=== PATIENT | male | born 1985 | race Caucasian/White ===

== ENCOUNTER 2018-04-20 07:49 | Inpatient (IN) | payer SELFPAY ==
[2018-04-20] MEDS ORDERED: ONDANSETRON HCL INJ/PF 4 MG/2 ML SDV IV ONE (08:29)
[2018-04-20] MEDS ORDERED: HYDROMORPHONE HCL INJ/PF 2 MG/ML AMPULE IV ONE ×2 (08:29→21:30)
--- NOTE | 2018-04-20 08:32 | ER Document Report ---
ED General - General Chief Complaint: Upper Abdominal Pain Stated Complaint: ABDOMINAL PAIN Time Seen by Provider: 04/20/18 08:16 TRAVEL OUTSIDE OF THE [place] IN LAST 30 DAYS: No - HPI Notes: Patient is a 32-year-old male who presents to the ED complaining of epigastric abdominal pain that will radiate around his abdomen and is associated with some mid back soreness times 1 day. Patient states that he has had pancreatitis twice in the past and that this feels the same. Patient states that he has occasional nausea without vomiting. He has had some loose stool over the last couple days. Denies drug allergies. He is otherwise able to eat and drink, but does have a decreased p.o. intake. No other recent illness. He is urinating normally. Denies any headache, fever, URI, sore throat, chest pain, palpitations, syncope, cough, shortness of breath, wheeze, dyspnea, vomiting, urinary retention, dysuria, hematuria, loss of control of bowel or bladder, numbness/tingling, saddle anesthesia, muscle paralysis/weakness, or rash. Surgical hx of cholecystectomy. - Related Data Allergies/Adverse Reactions: No Known Allergies Allergy (Verified 04/20/18 07:53) Past Medical History - Social History Smoking Status: Unknown if Ever Smoked Family History: Reviewed & Not Pertinent Review of Systems - Review of Systems -: Yes All other systems reviewed and negative Physical Exam - Vital signs Vitals: Temp Pulse Resp BP Pulse Ox 98.0 F 108 H 18 137/94 H 99 04/20/18 07:56 04/20/18 07:56 04/20/18 07:56 04/20/18 07:56 04/20/18 07:56 - Notes Notes: PHYSICAL EXAMINATION: GENERAL: Well-appearing, well-nourished and in no acute resp distress. A&Ox4. Answers questions appropriately. Appears to be in discomfort and holding abd. HEAD: Atraumatic, normocephalic. EYES: Pupils equal round and reactive to light, extraocular movements intact, sclera anicteric, conjunctiva are normal. ENT: EAC clear b/l. TM's intact b/l without erythema, fluid, or perforation. Nares patent and without discharge. oropharynx clear without exudates. No tonsilar hypertrophy or erythema. Moist mucous membranes. No sinus tenderness. NECK: Normal range of motion, supple without lymphadenopathy LUNGS: Breath sounds clear to auscultation bilaterally and equal. No wheezes rales or rhonchi. HEART: Regular rate and rhythm without murmurs, rubs, gallops. ABDOMEN: Soft, nondistended abdomen. No guarding, no rebound. No masses appreciated. Normal bowel sounds present. No CVA tenderness bilaterally. + tenderness to the epigastrum. Musculoskeletal: FROM to passive/active. Strength 5+/5. Extremities: No cyanosis, clubbing, or edema b/l. Peripheral pulses 2+. Capillary refill less than 3 seconds. NEUROLOGICAL: Normal speech, normal gait. PSYCH: Normal mood, normal affect. SKIN: Warm, Dry, normal turgor, no rashes or lesions noted. Course - Re-evaluation Re-evalutation: 04/20/18 10:55 Patient is an afebrile, well-hydrated, 32-year-old male who presents to the ED with acute alcoholic pancreatitis. Vitals are acceptable. Labs and CT imaging consistent with acute pancreatitis. Patient reports drinking over the last couple days. I did speak with our hospitalist, Dr. Saha, who accepted patient. Patient is in agreement with admission and plan. - Vital Signs Vital signs: Temp Pulse Resp BP Pulse Ox 98.0 F 108 H 18 137/94 H 99 04/20/18 07:56 04/20/18 07:56 04/20/18 07:56 04/20/18 07:56 04/20/18 07:56 - Laboratory Result Diagrams: 04/20/18 08:35 04/20/18 08:35 Laboratory results interpreted by me: 04/20/18 04/20/18 08:35 08:35 WBC 11.2 H RBC 5.58 H Hgb 17.9 H RDW 14.6 H Seg Neutrophils % 80.5 H Absolute Neutrophils 9.0 H Anion Gap 20 H Glucose 143 H Total Bilirubin 1.4 H Direct Bilirubin 0.5 H AST 77 H ALT 76 H Lipase 1623.5 H Discharge - Discharge Clinical Impression: Acute pancreatitis Qualifiers: Pancreatitis type: alcohol induced Acute pancreatitis complication: uninfected necrosis Qualified Code(s): K85.21 - Alcohol induced acute pancreatitis with uninfected necrosis Condition: Stable Disposition: ADMITTED INPATIENT Admitting Provider: Hospitalist - Dr. Saha Unit Admitted: Medical Floor
--- NOTE | 2018-04-20 08:44 | RADIOLOGY REPORT (SQ) ---
EXAM DESCRIPTION: CHEST SINGLE VIEW COMPLETED DATE/TIME: 04/20/2018 8:34 am REASON FOR STUDY: epigastric pain COMPARISON: None. EXAM PARAMETERS: NUMBER OF VIEWS: One view. TECHNIQUE: Single frontal radiographic view of the chest acquired. RADIATION DOSE: NA LIMITATIONS: None. FINDINGS: LUNGS AND PLEURA: No opacities, masses or pneumothorax. No pleural effusion. MEDIASTINUM AND HILAR STRUCTURES: No masses. Contour normal. HEART AND VASCULAR STRUCTURES: Heart normal in size. Normal vasculature. BONES: No acute findings. HARDWARE: None in the chest. OTHER: No other significant finding. IMPRESSION: 1. NO ACUTE RADIOGRAPHIC FINDING IN THE CHEST. TECHNICAL DOCUMENTATION: JOB ID: [id number] [employer]- All Rights Reserved Reading location - IP/workstation name: [email or web address]
[2018-04-20 08:50] LABS: ABSOLUTE LYMPHOCYTES (AUTO) 1.6 10^3/uL (0.5-4.7); ABSOLUTE MONOCYTES (AUTO) 0.5 10^3/uL (0.1-1.4); BASOPHILS % (AUTO) 0.3 % (0-2); EOSINOPHILS % (AUTO) 0.2 % (0-6); HEMATOCRIT 50.2 % (37.9-51.0); HEMOGLOBIN 17.9 g/dL (13.5-17.0); LYMPHOCYTES % (AUTO) 14.2 % (13-45); MEAN CORPUSCULAR HEMOGLOBIN 32.2 pg (27.0-33.4); MEAN CORPUSCULAR HGB CONC 35.8 g/dL (32.0-36.0); MEAN CORPUSCULAR VOLUME 90 fl (80-97); MONOCYTES % (AUTO) 4.8 % (3-13); PLATELET COUNT 426 10^3/uL (150-450); RED BLOOD COUNT 5.58 10^6/uL (4.35-5.55); RED CELL DISTRIBUTION WIDTH 14.6 % (11.5-14.0); SEGMENTED NEUTROPHILS % (AUTO) 80.5 % (42-78); TOTAL CELLS COUNTED % (AUTO) 100 %; WHITE BLOOD COUNT 11.2 10^3/uL (4.0-10.5)
[2018-04-20] MEDS: NORMAL SALINE 1000 ML 1,000 ML IV PRN ×2 (08:52→09:55)
[2018-04-20 10:21] LABS: ALANINE AMINOTRANSFERASE 76 U/L (21-72); ALBUMIN 4.9 g/dL (3.5-5.0); ALKALINE PHOSPHATASE 95 U/L (38-126); ASPARTATE AMINO TRANSFERASE 77 U/L (17-59); BILIRUBIN,DIRECT 0.5 mg/dL (0.0-0.4); BILIRUBIN,TOTAL 1.4 mg/dL (0.2-1.3); BLOOD UREA NITROGEN 13 mg/dL (7-20); CALCIUM 9.5 mg/dL (8.4-10.2); CARBON DIOXIDE 24 mmol/L (22-30); CHLORIDE 101 mmol/L (98-107); GLUCOSE 143 mg/dL (75-110); LIPASE 1623.5 U/L (23-300); POTASSIUM 4.3 mmol/L (3.6-5.0); TOTAL PROTEIN 7.9 g/dL (6.3-8.2)
[2018-04-20 10:28] LABS: SODIUM 144.5 mmol/L (137-145)
[2018-04-20 10:30] LABS: ANION GAP 20 (5-19)
--- NOTE | 2018-04-20 10:51 | RADIOLOGY REPORT (SQ) ---
EXAM DESCRIPTION: CT ABD/PELVIS WITH IV ONLY COMPLETED DATE/TIME: 04/20/2018 10:27 am REASON FOR STUDY: epigastric abd pain COMPARISON: None. TECHNIQUE: CT scan of the abdomen and pelvis performed using helical scanning technique with dynamic intravenous contrast injection. No oral contrast. Images reviewed with lung, soft tissue, and bone windows. Reconstructed coronal and sagittal MPR images reviewed. Delayed images for evaluation of the urinary system also acquired. All images stored on PACS. All CT scanners at this facility use dose modulation, iterative reconstruction, and/or weight based d osing when appropriate to reduce radiation dose to as low as reasonably achievable (ALARA). [facility]: Dose Right [facility]: CareDose [facility]: Dose Right [facility]: Teradose 4D [facility]: Yunno CONTRAST TYPE AND DOSE: contrast/concentration: Isovue 350.00 mg/ml; Total Contrast Delivered: 100.0 ml; Total Saline Delivered: 70.0 ml RENAL FUNCTION: None required. The patient is less than 50 years old. RADIATION DOSE: CT Rad equipment meets quality standard of care and radiation dose reduction techniq ues were employed. CTDIvol: 12.2 - 16.2 mGy. DLP: 1783 mGy-cm.. LIMITATIONS: None. FINDINGS: There is extensive retroperitoneal inflammation surrounding the pancreatic head neck and p roximal body, 2nd portion of duodenum from acute pancreatitis. This extends into the right anterior pararenal space. No free fluid in the abdomen or pelvis. No pseudocyst. No pancreatic ductal dilat ation This report was called Reji Quinteros in the emergency room 1040 hours 04/20/2018. LOWER CHEST: No significant findings. No nodules or infiltrates. LIVER: Decreased density from diffuse fatty infiltration. SPLEEN: Normal size. No focal lesions. PANCREAS: As above GALLBLADDER: Surgically absent ADRENAL GLANDS: No significant masses or asymmetry. RIGHT KIDNEY AND URETER: No solid masses. Subcentimeter cysts in the right mid and upper pole kidney . No significant calcifications. No hydronephrosis or hydroureter. LEFT KIDNEY AND URETER: No solid masses. 6.5 cm left midpole cyst, 1 cm left midpole cyst. 2 mm lef t lower pole intrarenal nonobstructive stone coronal image 41. No hydronephrosis or hydroureter. AORTA AND VESSELS: No aneurysm. No dissection. Renal arteries, SMA, celiac without stenosis. Normal enhancement of the splenic vein, superior mesenteric vein and main portal vein. RETROPERITONEUM: Peripancreatic inflammatory change. No adenopathy BOWEL AND PERITONEAL CAVITY: No masses or inflammatory changes. No free fluid or peritoneal masses. APPENDIX: Normal. PELVIS: No mass. No free fluid. Normal bladder. ABDOMINAL WALL: No masses. No hernias. BONES: No significant or acute findings. OTHER: No other significant finding. IMPRESSION: Acute pancreatitis Fatty liver Post cholecystectomy TECHNICAL DOCUMENTATION: JOB ID: [id number] Quality ID # [id number]: Final reports with documentation of one or more dose reduction techniques (e.g., Au tomated exposure control, adjustment of the mA and/or kV according to patient size, use of iterative reconstruction technique) 2010 [employer]- All Rights Reserved Reading location - IP/workstation name: [email or web address]
[2018-04-20] MEDS ORDERED: MORPHINE SULFATE 10 MG/ML INJ IV ONE (10:52)
[2018-04-20] MEDS ORDERED: NORMAL SALINE 1000 ML 1,000 ML IV PRN (10:54)
[2018-04-20] MEDS ORDERED: ONDANSETRON HCL INJ/PF 4 MG/2 ML SDV IV PRN (11:25)
[2018-04-20] MEDS ORDERED: MORPHINE SULFATE 10 MG/ML INJ IV PRN (11:31)
[2018-04-20] MEDS: FAMOTIDINE INJ/PF 20 MG/2 ML SDV IV SCH ×2 (12:16→22:59)
[2018-04-20] MEDS: HYDROMORPHONE HCL INJ/PF 2 MG/ML AMPULE IV PRN ×2 (14:00→19:50)
--- NOTE | 2018-04-20 14:39 | PDOC H&P ---
History of Present Illness Admission Date/PCP: 04/20/18 11:48 Patient complains of: Abdominal pain History of Present Illness: ADDY MCCARTNEY is a 32 year old male with history of gallstone/alcoholic pancreatitis, psoriasis who presents to the emergency room due to acute onset of severe progressive sharp epigastric pain started last night after drinking with his friends and associated with nausea and diarrhea with no vomiting. Patient tells me that he does not drink very often. He is from out of town and visiting friends. His last drink before that was a week ago. He has highly elevated lipase and CT scan is positive for acute pancreatitis. Past Medical History Past Medical History: Pancreatitis Psoriasis Psychiatric Medical History: Reports: Depression Past Surgical History Past Surgical History: Cholecystectomy Social History Smoking Status: Unknown if Ever Smoked Frequency of Alcohol Use: Occasional Hx Recreational Drug Use: No Drugs: None Hx Prescription Drug Abuse: No Family History Family History: Reviewed & Not Pertinent Parental Family History Reviewed: Yes Children Family History Reviewed: Yes Sibling(s) Family History Reviewed.: Yes Medication/Allergy Home Medications: No Home Medications 04/20/18 Allergies/Adverse Reactions: No Known Allergies Allergy (Verified 04/20/18 07:53) Review of Systems All systems: reviewed and no additional remarkable complaints except as stated Physical Exam Vital Signs: Temp Pulse Resp BP Pulse Ox 98.0 F 108 H 18 137/94 H 99 04/20/18 07:56 04/20/18 07:56 04/20/18 07:56 04/20/18 07:56 04/20/18 07:56 Intake & Output 04/19/18 04/20/18 04/21/18 06:59 06:59 06:59 Intake Total 168 Balance 168 General appearance: PRESENT: cooperative, mild distress Head exam: PRESENT: atraumatic, normocephalic Eye exam: PRESENT: EOMI. ABSENT: conjunctival injection, nystagmus Ear exam: ABSENT: bleeding, drainage Mouth exam: PRESENT: neck supple, tongue midline Throat exam: ABSENT: post pharyngeal erythema, tonsillar erythema, tonsillar exudate Neck exam: PRESENT: full ROM. ABSENT: JVD, meningismus, tenderness Respiratory exam: PRESENT: clear to auscultation puja, symmetrical, unlabored. ABSENT: accessory muscle use Cardiovascular exam: PRESENT: RRR. ABSENT: diastolic murmur, systolic murmur Pulses: PRESENT: normal radial pulses GI/Abdominal exam: PRESENT: normal bowel sounds, soft, tenderness. ABSENT: ascites Rectal exam: PRESENT: deferred Extremities exam: ABSENT: joint swelling, pedal edema Musculoskeletal exam: PRESENT: ambulatory, normal inspection. ABSENT: deformity Neurological exam: PRESENT: alert, altered, awake, oriented to person, oriented to place, oriented to time, oriented to situation Psychiatric exam: PRESENT: anxious. ABSENT: homicidal ideation, suicidal ideation Skin exam: PRESENT: erythema - Psoriasis rash Results Impressions: Chest X-Ray 04/20/18 08:15 IMPRESSION: 1. NO ACUTE RADIOGRAPHIC FINDING IN THE CHEST. Abdomen/Pelvis CT 04/20/18 09:18 IMPRESSION: Acute pancreatitis Fatty liver Post cholecystectomy Assessment & Plan - Diagnosis (1) Acute pancreatitis Qualifiers: Pancreatitis type: alcohol induced Acute pancreatitis complication: uninfected necrosis Qualified Code(s): K85.21 - Alcohol induced acute pancreatitis with uninfected necrosis Is this a current diagnosis for this admission?: Yes Plan: Admit to the medical floor Start aggressive IV fluid hydration IV Dilaudid for pain management IV Zofran as needed for nausea and vomiting Okay to start clear liquid diet (2) Psoriasis Is this a current diagnosis for this admission?: Yes Plan: Follow-up outpatient (3) Alcohol use Is this a current diagnosis for this admission?: Yes Plan: Advised to stop drinking alcohol
[2018-04-20] MEDS: LORAZEPAM INJ 2 MG/1 ML VIAL IV PRN ×2 (16:00→20:46)
[2018-04-20] MEDS: RINGERS SOLUTION,LACTATED 1,000 ML IV PRN (19:51)
[2018-04-21] MEDS: HYDROMORPHONE HCL INJ/PF 2 MG/ML AMPULE IV PRN ×6 (04:02→20:47)
[2018-04-21 06:36] LABS: ABSOLUTE LYMPHOCYTES (AUTO) 1.1 10^3/uL (0.5-4.7); ABSOLUTE MONOCYTES (AUTO) 0.8 10^3/uL (0.1-1.4); ABSOLUTE NEUT (AUTO) 17.5 10^3/uL (1.7-8.2); BASOPHILS % (AUTO) 0.2 % (0-2); LYMPHOCYTES % (AUTO) 5.6 % (13-45); MEAN CORPUSCULAR HGB CONC 35.5 g/dL (32.0-36.0); MEAN CORPUSCULAR VOLUME 90 fl (80-97); PLATELET COUNT 326 10^3/uL (150-450); RED BLOOD COUNT 5.33 10^6/uL (4.35-5.55); RED CELL DISTRIBUTION WIDTH 13.9 % (11.5-14.0); SEGMENTED NEUTROPHILS % (AUTO) 90.2 % (42-78); TOTAL CELLS COUNTED % (AUTO) 100 %; WHITE BLOOD COUNT 19.4 10^3/uL (4.0-10.5)
[2018-04-21 07:09] LABS: ALANINE AMINOTRANSFERASE 215 U/L (21-72); ALBUMIN 3.8 g/dL (3.5-5.0); ALKALINE PHOSPHATASE 100 U/L (38-126); ANION GAP 13 (5-19); ASPARTATE AMINO TRANSFERASE 611 U/L (17-59); BILIRUBIN,DIRECT 5.7 mg/dL (0.0-0.4); BLOOD UREA NITROGEN 9 mg/dL (7-20); CALCIUM 8.5 mg/dL (8.4-10.2); CARBON DIOXIDE 27 mmol/L (22-30); CHLORIDE 99 mmol/L (98-107); GLUCOSE 133 mg/dL (75-110); POTASSIUM 3.7 mmol/L (3.6-5.0); TOTAL PROTEIN 6.4 g/dL (6.3-8.2)
[2018-04-21 07:19] LABS: BILIRUBIN,TOTAL 7.5 mg/dL (0.2-1.3)
[2018-04-21 07:40] LABS: LIPASE 4514.2 U/L (23-300)
[2018-04-21] MEDS ORDERED: PIPERACILLIN/TAZOBACTAM 3.375 GM VIAL IV SCH (09:00)
[2018-04-21] MEDS: RINGERS SOLUTION,LACTATED 1,000 ML IV PRN ×3 (09:14→22:50)
[2018-04-21] MEDS: MAGNESIUM SULFATE/D5W 1 GM/100 ML RTUPB IV SCH ×3 (09:15→14:31)
[2018-04-21] MEDS: PIPERACILLIN SODIUM/TAZOBACTAM 3.375 GM in NORMAL SALINE 100 ML IV SCH ×3 (10:19→22:49)
[2018-04-21] MEDS: FAMOTIDINE INJ/PF 20 MG/2 ML SDV IV SCH ×2 (11:29→22:49)
[2018-04-21] MEDS: ENOXAPARIN SODIUM INJ 40 MG/0.4 ML DISP.SYRIN SUBCUT SCH (11:30)
[2018-04-21] MEDS ORDERED: LABETALOL HCL INJ 20 MG/4 ML DISP.SYRIN IV ONE (12:12)
--- NOTE | 2018-04-21 12:17 | PDOC PROGRESS REPORT ---
Subjective Progress Note for:: 04/21/18 Subjective:: Patient was admitted yesterday and received aggressive IV fluid hydration, IV Dilaudid for pain and IV Zofran for nausea and vomiting. He was started on clear liquid diet. He tells me that he vomited yesterday once. Although he is still tolerating clear liquids. His pain is tolerable with IV Dilaudid. Patient's labs are a lot worse today with his his bilirubin increased from 1.47.5 and white count increased from 11-19,000 his lipase is extremely elevated so as his liver enzymes today. He is also hypertensive and tachycardic. He does not have any respiratory distress. Reason For Visit: ACUTE PANCREATITIS Physical Exam Vital Signs: Temp Pulse Resp BP Pulse Ox 97.9 F 113 H 16 161/101 H 95 04/21/18 07:13 04/21/18 09:47 04/21/18 07:13 04/21/18 07:13 04/21/18 07:13 Intake & Output 04/20/18 04/21/18 04/22/18 06:59 06:59 06:59 Intake Total 998 1200 Balance 998 1200 Weight 218 lb 0.595 oz General appearance: PRESENT: cooperative. ABSENT: no acute distress Head exam: PRESENT: atraumatic, normocephalic Eye exam: PRESENT: EOMI, scleral icterus. ABSENT: nystagmus Ear exam: ABSENT: bleeding, drainage Neck exam: ABSENT: meningismus, tenderness Respiratory exam: PRESENT: clear to auscultation puja, unlabored. ABSENT: accessory muscle use, wheezes Cardiovascular exam: PRESENT: tachycardia. ABSENT: diastolic murmur, systolic murmur Pulses: PRESENT: normal radial pulses GI/Abdominal exam: PRESENT: normal bowel sounds, soft, tenderness - Severe epigastric tenderness. ABSENT: ascites Rectal exam: PRESENT: deferred Extremities exam: ABSENT: pedal edema Musculoskeletal exam: PRESENT: ambulatory. ABSENT: deformity Neurological exam: PRESENT: alert, altered, awake, oriented to person, oriented to place, oriented to time, oriented to situation Psychiatric exam: PRESENT: anxious. ABSENT: homicidal ideation, suicidal ideation Results Laboratory Results: 04/21/18 04:57 04/21/18 04:57 04/21/18 04/21/18 04:57 04:57 WBC 19.4 H RBC 5.33 Hgb 17.0 Hct 48.0 MCV 90 MCH 32.0 MCHC 35.5 RDW 13.9 Plt Count 326 Seg Neutrophils % 90.2 H Lymphocytes % 5.6 L Monocytes % 4.0 Eosinophils % 0.0 Basophils % 0.2 Absolute Neutrophils 17.5 H Absolute Lymphocytes 1.1 Absolute Monocytes 0.8 Absolute Eosinophils 0.0 Absolute Basophils 0.0 Sodium 139.0 Potassium 3.7 Chloride 99 Carbon Dioxide 27 Anion Gap 13 BUN 9 Creatinine 0.67 Est GFR ( Amer) > 60 Est GFR (Non-Af Amer) > 60 Glucose 133 H Calcium 8.5 Magnesium 1.3 L Total Bilirubin 7.5 H D AST 611 H ALT 215 H Alkaline Phosphatase 100 Total Protein 6.4 Albumin 3.8 Lipase 4514.2 H Impressions: Chest X-Ray 04/20/18 08:15 IMPRESSION: 1. NO ACUTE RADIOGRAPHIC FINDING IN THE CHEST. Abdomen/Pelvis CT 04/20/18 09:18 IMPRESSION: Acute pancreatitis Fatty liver Post cholecystectomy Assessment & Plan - Diagnosis (1) Acute pancreatitis Qualifiers: Pancreatitis type: alcohol induced Acute pancreatitis complication: uninfected necrosis Qualified Code(s): K85.21 - Alcohol induced acute pancreatitis with uninfected necrosis Is this a current diagnosis for this admission?: Yes Plan: Continue aggressive IV fluid hydration Continue IV Dilaudid for pain management Continue IV Zofran as needed for nausea and vomiting Patient is not improving, he is actually worsening His lipase levels significantly increased so as his total bilirubin levels and his liver enzymes Also, his white cell count significant increased Is also hypertensive and tachycardic I asked him again today about his alcohol consumption, he is still insisting that he does not drink much at all We will repeat CT scan of the abdomen with IV contrast and check right upper quadrant ultrasound We will consult general surgery We will continue to monitor his labs very closely as well as his hemodynamic status Continue to monitor urine output very closely (2) Psoriasis Is this a current diagnosis for this admission?: Yes Plan: Should follow-up outpatient (3) Alcohol use Is this a current diagnosis for this admission?: Yes Plan: Again, advised to stop drinking alcohol (4) Hyperbilirubinemia Is this a current diagnosis for this admission?: Yes Plan: As above (5) Transaminitis Is this a current diagnosis for this admission?: Yes Plan: As above (6) Leukocytosis Is this a current diagnosis for this admission?: Yes Plan: Start Zosyn empirically and check blood cultures (7) Hypomagnesemia Is this a current diagnosis for this admission?: Yes Plan: Replace with IV magnesium and monitor levels (8) Tachycardia Is this a current diagnosis for this admission?: Yes Plan: Check EKG and admit to telemetry
--- NOTE | 2018-04-21 13:23 | RADIOLOGY REPORT (SQ) ---
EXAM DESCRIPTION: U/S ABDOMEN LIMITED W/O DOP COMPLETED DATE/TIME: 04/21/2018 1:12 pm REASON FOR STUDY: pancreatitis COMPARISON: Abdominal CT scan dated 04/20/2018 TECHNIQUE: Dynamic and static grayscale images acquired of the abdomen and recorded on PACS. Additio nal selected color Doppler and spectral images recorded. LIMITATIONS: Study is limited due to overlying bowel gas. FINDINGS: PANCREAS: No masses. Visualized pancreatic duct normal caliber. LIVER: No masses. Echotexture normal. The liver measures enlarged. LIVER VASCULATURE: Normal directional flow of the main portal vein. GALLBLADDER: Status post cholecystectomy ULTRASOUND-DETECTED CARRILLO'S SIGN: Negative. INTRAHEPATIC DUCTS AND COMMON DUCT: CBD and intrahepatic ducts normal caliber. No filling defects. INFERIOR VENA CAVA: Normal flow. AORTA: No aneurysm. RIGHT KIDNEY: 14.3 cm in length. Normal echogenicity. No solid or suspicious masses. No hydronephros is. No calcifications. PERITONEAL AND RIGHT PLEURAL SPACE: Small amount of free fluid is identified just superior to the rig ht kidney presumably related to the patient's pancreatitis which was identified on the previous study OTHER: No other significant findings. IMPRESSION: No definite pancreatic masses are identified. Status post cholecystectomy. Small amoun t of free fluid is identified just superior to the right kidney presumably related to the patient's p ancreatitis which was identified on the previous study. Other findings as noted above TECHNICAL DOCUMENTATION: JOB ID: [id number] [employer]- All Rights Reserved Reading location - IP/workstation name: [email or web address]
--- NOTE | 2018-04-21 15:23 | RADIOLOGY REPORT (SQ) ---
EXAM DESCRIPTION: CT ABD/PELVIS WITH IV ONLY COMPLETED DATE/TIME: 04/21/2018 1:21 pm REASON FOR STUDY: pancreatitis COMPARISON: Previous day. TECHNIQUE: CT scan of the abdomen and pelvis performed using helical scanning technique with dynamic intravenous contrast injection. No oral contrast. Images reviewed with lung, soft tissue, and bone windows. Reconstructed coronal and sagittal MPR images reviewed. Delayed images for evaluation of the urinary system also acquired. All images stored on PACS. All CT scanners at this facility use dose modulation, iterative reconstruction, and/or weight based d osing when appropriate to reduce radiation dose to as low as reasonably achievable (ALARA). [facility]: Dose Right [facility]: CareDose [facility]: Dose Right [facility]: Teradose 4D [facility]: LUXA CONTRAST TYPE AND DOSE: contrast/concentration: Isovue 350.00 mg/ml; Total Contrast Delivered: 100.0 ml; Total Saline Delivered: 72.0 ml RENAL FUNCTION: GFR > 60. RADIATION DOSE: CT Rad equipment meets quality standard of care and radiation dose reduction techniq ues were employed. CTDIvol: 10.7 - 12.5 mGy. DLP: 1428 mGy-cm.. LIMITATIONS: None. FINDINGS: No significant change in inflammation associated with acute pancreatitis. No evidence of necrosis. No pseudoaneurysm or pseudocyst. Small amount of ascites in the left upper quadrant and pelvis. Appearance is otherwise unchanged IMPRESSION: Acute pancreatitis. Small amount of ascites. Otherwise no change. TECHNICAL DOCUMENTATION: JOB ID: [id number] Quality ID # [id number]: Final reports with documentation of one or more dose reduction techniques (e.g., Au tomated exposure control, adjustment of the mA and/or kV according to patient size, use of iterative reconstruction technique) 2010 [email or web address]- All Rights Reserved Reading location - IP/workstation name: [email or web address]
--- NOTE | 2018-04-21 16:04 | PDOC CONSULTATION ---
History of Present Illness Admission Date/PCP: 04/20/18 11:48 Patient complains of: Abdominal pain History of Present Illness: ADDY MCCARTNEY is a 32 year old male with a history of heavy alcohol use who developed acute onset of diffuse abdominal pain several days ago after drinking alcohol. The pain in the epigastric region has subsided but he has developed diffuse abdominal pain along with abdominal distention. He also has had an episode of nausea and vomiting. He has had 2 prior episodes of pancreatitis which were attributed to possible gallstones and he had a laparoscopic cholecystectomy couple of years ago. However he has had an episode of pancreatitis after his cholecystectomy last year. Uncertain whether he ever had an ERCP. His only other past medical history is psoriasis for which he has been on different medications in the past but no recent intake of methotrexate nor steroids. Patient denies any history of alcohol withdrawals. He states that he does not drink every day. He denies any drug abuse. Past Medical History Cardiac Medical History: Reports: None Pulmonary Medical History: Reports: None Endocrine Medical History: Reports: None GI Medical History: Reports: Other - Pancreatitis in the past Skin Medical History: Reports: Psoriasis Psychiatric Medical History: Reports: Depression Social History Smoking Status: Never Smoker Frequency of Alcohol Use: Heavy Hx Recreational Drug Use: No Drugs: None Hx Prescription Drug Abuse: No Family History Family History: Reviewed & Not Pertinent Parental Family History Reviewed: No Children Family History Reviewed: No Sibling(s) Family History Reviewed.: No Medication/Allergy Home Medications: No Home Medications 04/20/18 Allergies/Adverse Reactions: No Known Allergies Allergy (Verified 04/20/18 07:53) Physical Exam Vital Signs: Temp Pulse Resp BP Pulse Ox 98.2 F 69 16 156/107 H 96 04/21/18 11:13 04/21/18 14:00 04/21/18 11:13 04/21/18 11:13 04/21/18 11:13 Intake & Output 04/20/18 04/21/18 04/22/18 06:59 06:59 06:59 Intake Total 998 1300 Output Total 300 Balance 998 1000 Weight 98.9 kg General appearance: PRESENT: no acute distress, cooperative Neck exam: PRESENT: other - No swelling and no masses. Supple. Respiratory exam: PRESENT: clear to auscultation puja Cardiovascular exam: PRESENT: RRR GI/Abdominal exam: PRESENT: other - Moderately distended but it is soft with diffuse abdominal tenderness without peritoneal signs. Extremities exam: PRESENT: other - No swelling. Neurological exam: PRESENT: alert, awake Psychiatric exam: PRESENT: appropriate affect Skin exam: PRESENT: warm Results Laboratory Results: 04/21/18 04:57 04/21/18 04:57 04/21/18 04/21/18 04:57 04:57 WBC 19.4 H RBC 5.33 Hgb 17.0 Hct 48.0 MCV 90 MCH 32.0 MCHC 35.5 RDW 13.9 Plt Count 326 Seg Neutrophils % 90.2 H Lymphocytes % 5.6 L Monocytes % 4.0 Eosinophils % 0.0 Basophils % 0.2 Absolute Neutrophils 17.5 H Absolute Lymphocytes 1.1 Absolute Monocytes 0.8 Absolute Eosinophils 0.0 Absolute Basophils 0.0 Sodium 139.0 Potassium 3.7 Chloride 99 Carbon Dioxide 27 Anion Gap 13 BUN 9 Creatinine 0.67 Est GFR ( Amer) > 60 Est GFR (Non-Af Amer) > 60 Glucose 133 H Calcium 8.5 Magnesium 1.3 L Total Bilirubin 7.5 H D AST 611 H ALT 215 H Alkaline Phosphatase 100 Total Protein 6.4 Albumin 3.8 Lipase 4514.2 H Impressions: Chest X-Ray 04/20/18 08:15 IMPRESSION: 1. NO ACUTE RADIOGRAPHIC FINDING IN THE CHEST. Abdomen Ultrasound 04/21/18 00:00 IMPRESSION: No definite pancreatic masses are identified. Status post cholecystectomy. Small amount of free fluid is identified just superior to the right kidney presumably related to the patient's pancreatitis which was identified on the previous study. Other findings as noted above Abdomen/Pelvis CT 04/21/18 00:00 IMPRESSION: Acute pancreatitis. Small amount of ascites. Otherwise no change. Assessment & Plan - Diagnosis (1) Acute pancreatitis Qualifiers: Acute pancreatitis complication: uninfected necrosis Qualified Code(s): K85.21 - Alcohol induced acute pancreatitis with uninfected necrosis Is this a current diagnosis for this admission?: Yes Plan: Pancreatitis of unclear etiology most likely alcohol. However cannot entirely exclude biliary pancreatitis. Recommend placing Henry catheter for more precise fluid management. Keep patient at bowel rest. Increase his narcotic frequency and dosage to get better control of his pain. I suspect that patient is behind in his fluid requirements at this time. Close observation and supportive care. Will order an MRCP to exclude choledocholithiasis and pancreatic anomalies. If he does have evidence of choledocholithiasis recommend gastroenterology consultation for ERCP. Recommend having a low threshold for transfer to the intensive care unit. I do not see evidence of necrotizing pancreatitis and I do not see any role for surgical intervention.
[2018-04-21 16:28] LABS: URINE AMPHETAMINES SCREEN NEGATIVE; URINE BARBITURATES SCREEN NEGATIVE; URINE BENZODIAZEPINES SCREEN NEGATIVE; URINE COCAINE SCREEN NEGATIVE; URINE MARIJUANA (THC) SCREEN NEGATIVE; URINE METHADONE SCREEN NEGATIVE; URINE PHENCYCLIDINE SCREEN NEGATIVE
--- NOTE | 2018-04-21 21:07 | RADIOLOGY REPORT (SQ) ---
EXAM DESCRIPTION: MRI ABDOMEN WITHOUT COMPLETED DATE/TIME: 04/21/2018 6:30 pm REASON FOR STUDY: mrcp to r/o cbd stone and pancreatic anomaly COMPARISON: CT from earlier. TECHNIQUE: Noncontrast MRCP. Source and MIP images reviewed. LIMITATIONS: None. FINDINGS: GALLBLADDER: Surgically absent. INTRAHEPATIC DUCTS: Nondilated. EXTRAHEPATIC DUCTS: Common duct is normal caliber. No dilatation of the pancreatic duct. No ductal filling defects noted. PANCREAS: Peripancreatic edema and strandy fluid. Enlarged appearance of the pancreatic head and nec k, as seen on CT. Proximal to this, the pancreatic duct looks minimally dilated. Small cysts measur ing 1 cm along the pancreatic tail approximately as well. Unclear if this communicates with the panc reatic duct. No focal drainable/ loculated pseudo cysts. LIVER, SPLEEN, KIDNEYS, ADRENALS: No significant abnormality. VESSELS: Appropriate vascular flow voids. No aortic aneurysm. LUNG BASES: Trace pleural fluid. OTHER: Mild perihepatic and perisplenic fluid with strandy fluid in the retroperitoneum, pararenal sp carmelo is right greater than left. IMPRESSION: 1. Status post cholecystectomy. No intrahepatic or extrahepatic bile duct distention or duct stones. 2. Findings consistent with the clinical history of pancreatitis involving the head a nd neck. Proximal to this, there is mild pancreatic duct dilatation and cyst formation. Allowing fo r the relatively diffuse prominence of head and neck pancreatic tissue, no discrete mass is seen. TECHNICAL DOCUMENTATION: JOB ID: [id number] All Rights Reserved Reading location - IP/workstation name: [email or web address]
[2018-04-22] MEDS: HYDROMORPHONE HCL INJ/PF 2 MG/ML AMPULE IV PRN ×7 (00:28→23:33)
[2018-04-22] MEDS: PIPERACILLIN SODIUM/TAZOBACTAM 3.375 GM in NORMAL SALINE 100 ML IV SCH ×4 (03:52→20:28)
[2018-04-22] MEDS: KETOROLAC TROMETHAMINE INJ/PF 30 MG/1 ML SDV IV PRN ×4 (03:53→23:17)
[2018-04-22] MEDS: RINGERS SOLUTION,LACTATED 1,000 ML IV PRN ×2 (06:04→13:03)
[2018-04-22 06:11] LABS: ABSOLUTE MONOCYTES (AUTO) 0.6 10^3/uL (0.1-1.4); ABSOLUTE NEUT (AUTO) 14.8 10^3/uL (1.7-8.2); BASOPHILS % (AUTO) 0.1 % (0-2); HEMATOCRIT 43.3 % (37.9-51.0); MEAN CORPUSCULAR HEMOGLOBIN 32.4 pg (27.0-33.4); MEAN CORPUSCULAR HGB CONC 35.7 g/dL (32.0-36.0); MEAN CORPUSCULAR VOLUME 91 fl (80-97); MONOCYTES % (AUTO) 3.5 % (3-13); PLATELET COUNT 230 10^3/uL (150-450); RED BLOOD COUNT 4.77 10^6/uL (4.35-5.55); RED CELL DISTRIBUTION WIDTH 14.1 % (11.5-14.0); SEGMENTED NEUTROPHILS % (AUTO) 90.4 % (42-78); TOTAL CELLS COUNTED % (AUTO) 100 %; WHITE BLOOD COUNT 16.4 10^3/uL (4.0-10.5)
[2018-04-22 06:16] LABS: HEMOGLOBIN 15.5 g/dL (13.5-17.0)
[2018-04-22 06:25] LABS: ALBUMIN 3.3 g/dL (3.5-5.0); GLUCOSE 129 mg/dL (75-110); POTASSIUM 3.4 mmol/L (3.6-5.0); TOTAL PROTEIN 5.3 g/dL (6.3-8.2)
[2018-04-22 06:27] LABS: ALANINE AMINOTRANSFERASE 275 U/L (21-72); ALKALINE PHOSPHATASE 136 U/L (38-126); ANION GAP 17 (5-19); ASPARTATE AMINO TRANSFERASE 356 U/L (17-59); BILIRUBIN,DIRECT 8.2 mg/dL (0.0-0.4); BILIRUBIN,TOTAL 9.6 mg/dL (0.2-1.3); BLOOD UREA NITROGEN 7 mg/dL (7-20); CALCIUM 8.4 mg/dL (8.4-10.2); CARBON DIOXIDE 24 mmol/L (22-30); CHLORIDE 98 mmol/L (98-107); SODIUM 138.7 mmol/L (137-145)
--- NOTE | 2018-04-22 06:28 | Progress Note ---
Provider Note Provider Note: Nurse called me overnight as the patient had persistent hypotension, at some point 70/30, nurse was infusion 2 units of albumin but despite this her blood pressure continue to be low. Decision was made to refer the patient to the intensive care unit, Lasix and all hypertensive medications were held. Levophed was started.
--- NOTE | 2018-04-22 09:34 | PDOC PROGRESS REPORT ---
Subjective Progress Note for:: 04/22/18 Subjective:: Patient improved clinically. He says his pain has improved and denies nausea or vomiting. Although he says that his lower abdomen feels distended and asking for suppository. His white count has improved so as his liver enzymes except bilirubin slightly higher today. MRCP did not show any stones but is positive for mild pancreatic duct dilatation and cyst formation. No tissue necrosis. Reason For Visit: ACUTE PANCREATITIS Physical Exam Vital Signs: Temp Pulse Resp BP Pulse Ox 99.0 F 101 H 19 152/98 H 98 04/22/18 03:18 04/22/18 07:00 04/22/18 03:18 04/22/18 03:18 04/22/18 03:18 Intake & Output 04/21/18 04/22/18 04/23/18 06:59 06:59 06:59 Intake Total 998 3700 Output Total 800 Balance 998 2900 Weight 218 lb 0.595 oz 222 lb 14.197 oz General appearance: PRESENT: no acute distress, cooperative Head exam: PRESENT: atraumatic, normocephalic Eye exam: PRESENT: EOMI, scleral icterus Ear exam: ABSENT: bleeding, drainage Neck exam: ABSENT: meningismus, tenderness, thyromegaly Respiratory exam: PRESENT: clear to auscultation puja. ABSENT: accessory muscle use Cardiovascular exam: PRESENT: tachycardia. ABSENT: diastolic murmur, systolic murmur Pulses: PRESENT: normal radial pulses GI/Abdominal exam: PRESENT: normal bowel sounds, soft, tenderness - Diffuse, better than yesterday. ABSENT: ascites, mass Rectal exam: PRESENT: deferred Extremities exam: ABSENT: pedal edema Neurological exam: PRESENT: alert, altered, awake, oriented to person, oriented to place, oriented to time, oriented to situation Psychiatric exam: PRESENT: anxious. ABSENT: homicidal ideation, suicidal ideation Results Laboratory Results: 04/22/18 04:37 04/22/18 04:37 04/22/18 04/22/18 04:37 04:37 WBC 16.4 H RBC 4.77 Hgb 15.5 Hct 43.3 MCV 91 MCH 32.4 MCHC 35.7 RDW 14.1 H Plt Count 230 Seg Neutrophils % 90.4 H Lymphocytes % 6.0 L Monocytes % 3.5 Eosinophils % 0.0 Basophils % 0.1 Absolute Neutrophils 14.8 H Absolute Lymphocytes 1.0 Absolute Monocytes 0.6 Absolute Eosinophils 0.0 Absolute Basophils 0.0 Sodium 138.7 Potassium 3.4 L Chloride 98 Carbon Dioxide 24 Anion Gap 17 BUN 7 Creatinine 0.60 Est GFR ( Amer) > 60 Est GFR (Non-Af Amer) > 60 Glucose 129 H Calcium 8.4 Magnesium 2.1 Total Bilirubin 9.6 H AST 356 H ALT 275 H Alkaline Phosphatase 136 H Total Protein 5.3 L Albumin 3.3 L Impressions: Chest X-Ray 04/20/18 08:15 IMPRESSION: 1. NO ACUTE RADIOGRAPHIC FINDING IN THE CHEST. Abdomen MRI 04/21/18 00:00 IMPRESSION: 1. Status post cholecystectomy. No intrahepatic or extrahepatic bile duct distention or duct stones. 2. Findings consistent with the clinical history of pancreatitis involving the head and neck. Proximal to this, there is mild pancreatic duct dilatation and cyst formation. Allowing for the relatively diffuse prominence of head and neck pancreatic tissue, no discrete mass is seen. Abdomen Ultrasound 04/21/18 00:00 IMPRESSION: No definite pancreatic masses are identified. Status post cholecystectomy. Small amount of free fluid is identified just superior to the right kidney presumably related to the patient's pancreatitis which was identified on the previous study. Other findings as noted above Abdomen/Pelvis CT 04/21/18 00:00 IMPRESSION: Acute pancreatitis. Small amount of ascites. Otherwise no change. Assessment & Plan - Diagnosis (1) Acute pancreatitis Qualifiers: Acute pancreatitis complication: uninfected necrosis Qualified Code(s): K85.21 - Alcohol induced acute pancreatitis with uninfected necrosis Is this a current diagnosis for this admission?: Yes Plan: Continue aggressive IV fluid hydration, decrease rate to 175/h Continue IV Dilaudid and Toradol for pain management Continue IV Zofran as needed for nausea and vomiting We will keep him n.p.o. for today and again Monitor him very closely (2) Psoriasis Is this a current diagnosis for this admission?: Yes Plan: Should follow-up outpatient (3) Alcohol use Is this a current diagnosis for this admission?: Yes Plan: Again, advised to stop drinking alcohol (4) Hyperbilirubinemia Is this a current diagnosis for this admission?: Yes Plan: MRCP did not show any intraductal stones but shows pancreatic duct dilatation that is mild and also cyst formation The head of pancreas is more swollen as well Continue treatment for pancreatitis and monitor bilirubin levels (5) Transaminitis Is this a current diagnosis for this admission?: Yes Plan: Improved today, continue to monitor (6) Leukocytosis Is this a current diagnosis for this admission?: Yes Plan: Started Zosyn empirically Follow blood cultures Likely related to pancreatitis (7) Hypomagnesemia Is this a current diagnosis for this admission?: Yes Plan: Improved after replacement (8) Tachycardia Is this a current diagnosis for this admission?: Yes Plan: Improved (9) Hypokalemia Is this a current diagnosis for this admission?: Yes Plan: Replace and monitor
[2018-04-22] MEDS: ENOXAPARIN SODIUM INJ 40 MG/0.4 ML DISP.SYRIN SUBCUT SCH (09:45)
[2018-04-22] MEDS: FAMOTIDINE INJ/PF 20 MG/2 ML SDV IV SCH ×2 (09:45→23:04)
[2018-04-22] MEDS ORDERED: BISACODYL 10 MG SUPP.RECT PR ONE ×2 (10:30→18:00)
--- NOTE | 2018-04-22 10:44 | PDOC PROGRESS REPORT ---
Subjective Progress Note for:: 04/22/18 Subjective:: Still having generalized abdominal pain. Feels bloated. But no nausea or vomiting. Reason For Visit: ACUTE PANCREATITIS Physical Exam Vital Signs: Temp Pulse Resp BP Pulse Ox 99.0 F 101 H 19 152/98 H 98 04/22/18 03:18 04/22/18 07:00 04/22/18 03:18 04/22/18 03:18 04/22/18 03:18 Intake & Output 04/21/18 04/22/18 04/23/18 06:59 06:59 06:59 Intake Total 998 3700 Output Total 800 Balance 998 2900 Weight 98.9 kg 101.1 kg General appearance: PRESENT: no acute distress, cooperative Respiratory exam: PRESENT: clear to auscultation puja Cardiovascular exam: PRESENT: RRR GI/Abdominal exam: PRESENT: other - Abdomen is distended with diffuse abdominal tenderness but feels softer and less tender than yesterday. Neurological exam: PRESENT: alert, awake Psychiatric exam: PRESENT: appropriate affect Results Laboratory Results: 04/22/18 04:37 04/22/18 04:37 04/22/18 04/22/18 04:37 04:37 WBC 16.4 H RBC 4.77 Hgb 15.5 Hct 43.3 MCV 91 MCH 32.4 MCHC 35.7 RDW 14.1 H Plt Count 230 Seg Neutrophils % 90.4 H Lymphocytes % 6.0 L Monocytes % 3.5 Eosinophils % 0.0 Basophils % 0.1 Absolute Neutrophils 14.8 H Absolute Lymphocytes 1.0 Absolute Monocytes 0.6 Absolute Eosinophils 0.0 Absolute Basophils 0.0 Sodium 138.7 Potassium 3.4 L Chloride 98 Carbon Dioxide 24 Anion Gap 17 BUN 7 Creatinine 0.60 Est GFR ( Amer) > 60 Est GFR (Non-Af Amer) > 60 Glucose 129 H Calcium 8.4 Magnesium 2.1 Total Bilirubin 9.6 H AST 356 H ALT 275 H Alkaline Phosphatase 136 H Total Protein 5.3 L Albumin 3.3 L Impressions: Chest X-Ray 04/20/18 08:15 IMPRESSION: 1. NO ACUTE RADIOGRAPHIC FINDING IN THE CHEST. Abdomen MRI 04/21/18 00:00 IMPRESSION: 1. Status post cholecystectomy. No intrahepatic or extrahepatic bile duct distention or duct stones. 2. Findings consistent with the clinical history of pancreatitis involving the head and neck. Proximal to this, there is mild pancreatic duct dilatation and cyst formation. Allowing for the relatively diffuse prominence of head and neck pancreatic tissue, no discrete mass is seen. Abdomen Ultrasound 04/21/18 00:00 IMPRESSION: No definite pancreatic masses are identified. Status post cholecystectomy. Small amount of free fluid is identified just superior to the right kidney presumably related to the patient's pancreatitis which was identified on the previous study. Other findings as noted above Abdomen/Pelvis CT 04/21/18 00:00 IMPRESSION: Acute pancreatitis. Small amount of ascites. Otherwise no change. Assessment & Plan - Diagnosis (1) Acute pancreatitis Qualifiers: Acute pancreatitis complication: uninfected necrosis Qualified Code(s): K85.21 - Alcohol induced acute pancreatitis with uninfected necrosis Is this a current diagnosis for this admission?: Yes Plan: Patient's LFTs have worsened but exam appears improved from yesterday. MRCP demonstrated no evidence of common bile duct stones. No pancreatic ductal anomalies seen. Continue supportive care. I do not see any role for surgical intervention. Suspect that with decreased edema, his LFTs will improve.
[2018-04-22] MEDS ORDERED: ONDANSETRON HCL INJ/PF 4 MG/2 ML SDV IV PRN (13:00)
[2018-04-22] MEDS: POTASSI CL 20 MEQ/50 ML RIDER 20 MEQ/50 ML RTUPB IV SCH ×2 (13:07→15:18)
[2018-04-22] MEDS: LORAZEPAM INJ 2 MG/1 ML VIAL IV PRN (20:27)
[2018-04-23] MEDS: LORAZEPAM INJ 2 MG/1 ML VIAL IV PRN (04:08)
[2018-04-23] MEDS: PIPERACILLIN SODIUM/TAZOBACTAM 3.375 GM in NORMAL SALINE 100 ML IV SCH ×4 (04:10→23:16)
[2018-04-23] MEDS: HYDROMORPHONE HCL INJ/PF 2 MG/ML AMPULE IV PRN ×5 (04:10→23:14)
[2018-04-23 05:32] LABS: ABSOLUTE LYMPHOCYTES (AUTO) 1.2 10^3/uL (0.5-4.7); ABSOLUTE MONOCYTES (AUTO) 0.4 10^3/uL (0.1-1.4); ABSOLUTE NEUT (AUTO) 7.1 10^3/uL (1.7-8.2); BASOPHILS % (AUTO) 0.3 % (0-2); EOSINOPHILS % (AUTO) 0.3 % (0-6); HEMATOCRIT 37.1 % (37.9-51.0); LYMPHOCYTES % (AUTO) 13.9 % (13-45); MEAN CORPUSCULAR HEMOGLOBIN 32.3 pg (27.0-33.4); MEAN CORPUSCULAR HGB CONC 35.3 g/dL (32.0-36.0); MEAN CORPUSCULAR VOLUME 91 fl (80-97); MONOCYTES % (AUTO) 4.9 % (3-13); PLATELET COUNT 177 10^3/uL (150-450); RED BLOOD COUNT 4.06 10^6/uL (4.35-5.55); RED CELL DISTRIBUTION WIDTH 14.5 % (11.5-14.0); SEGMENTED NEUTROPHILS % (AUTO) 80.6 % (42-78); TOTAL CELLS COUNTED % (AUTO) 100 %; WHITE BLOOD COUNT 8.9 10^3/uL (4.0-10.5)
[2018-04-23 05:37] LABS: HEMOGLOBIN 13.1 g/dL (13.5-17.0)
[2018-04-23 05:43] LABS: ALANINE AMINOTRANSFERASE 165 U/L (21-72); ALBUMIN 2.8 g/dL (3.5-5.0); ALKALINE PHOSPHATASE 115 U/L (38-126); ANION GAP 12 (5-19); ASPARTATE AMINO TRANSFERASE 151 U/L (17-59); BILIRUBIN,DIRECT 7.7 mg/dL (0.0-0.4); BILIRUBIN,TOTAL 8.9 mg/dL (0.2-1.3); BLOOD UREA NITROGEN 12 mg/dL (7-20); CALCIUM 8.2 mg/dL (8.4-10.2); CARBON DIOXIDE 27 mmol/L (22-30); CHLORIDE 98 mmol/L (98-107); GLUCOSE 92 mg/dL (75-110); LIPASE 502.6 U/L (23-300); POTASSIUM 3.6 mmol/L (3.6-5.0); SODIUM 136.6 mmol/L (137-145); TOTAL PROTEIN 5.2 g/dL (6.3-8.2)
[2018-04-23] MEDS: KETOROLAC TROMETHAMINE INJ/PF 30 MG/1 ML SDV IV PRN ×3 (09:01→23:14)
[2018-04-23] MEDS: ENOXAPARIN SODIUM INJ 40 MG/0.4 ML DISP.SYRIN SUBCUT SCH (09:39)
[2018-04-23] MEDS: FAMOTIDINE INJ/PF 20 MG/2 ML SDV IV SCH ×2 (09:39→23:15)
--- NOTE | 2018-04-23 10:00 | PDOC PROGRESS REPORT ---
Subjective Progress Note for:: 04/23/18 Subjective:: Patient reports some of the symptoms are better and some are worse. He talks about his kidneys hurting his bladder being full and bloating. Overnight his Henry catheter was removed per his request. He denies fever. He remains n.p.o. Has voided since catheter removal Reason For Visit: ACUTE PANCREATITIS Physical Exam Vital Signs: Temp Pulse Resp BP Pulse Ox 98.8 F 103 H 18 141/110 H 100 04/23/18 07:50 04/23/18 07:50 04/23/18 07:50 04/23/18 07:50 04/23/18 07:50 Intake & Output 04/22/18 04/23/18 04/24/18 06:59 06:59 06:59 Intake Total 3700 1750 Output Total 800 1160 Balance 2900 590 Weight 101.1 kg 107.8 kg General appearance: PRESENT: no acute distress, other - Moves about reasonably well in the GI/Abdominal exam: PRESENT: other - Abdomen is soft no peritoneal signs no rigidity some firmness in the upper gastric areas. No guarding. Results Laboratory Results: 04/23/18 04:46 04/23/18 04:46 04/23/18 04/23/18 04:46 04:46 WBC 8.9 RBC 4.06 L Hgb 13.1 L D Hct 37.1 L MCV 91 MCH 32.3 MCHC 35.3 RDW 14.5 H Plt Count 177 Seg Neutrophils % 80.6 H Lymphocytes % 13.9 Monocytes % 4.9 Eosinophils % 0.3 Basophils % 0.3 Absolute Neutrophils 7.1 Absolute Lymphocytes 1.2 Absolute Monocytes 0.4 Absolute Eosinophils 0.0 Absolute Basophils 0.0 Sodium 136.6 L Potassium 3.6 Chloride 98 Carbon Dioxide 27 Anion Gap 12 BUN 12 Creatinine 0.54 Est GFR ( Amer) > 60 Est GFR (Non-Af Amer) > 60 Glucose 92 Calcium 8.2 L Magnesium 2.0 Total Bilirubin 8.9 H AST 151 H ALT 165 H Alkaline Phosphatase 115 Total Protein 5.2 L Albumin 2.8 L Lipase 502.6 H Impressions: Chest X-Ray 04/20/18 08:15 IMPRESSION: 1. NO ACUTE RADIOGRAPHIC FINDING IN THE CHEST. Abdomen MRI 04/21/18 00:00 IMPRESSION: 1. Status post cholecystectomy. No intrahepatic or extrahepatic bile duct distention or duct stones. 2. Findings consistent with the clinical history of pancreatitis involving the head and neck. Proximal to this, there is mild pancreatic duct dilatation and cyst formation. Allowing for the relatively diffuse prominence of head and neck pancreatic tissue, no discrete mass is seen. Abdomen Ultrasound 04/21/18 00:00 IMPRESSION: No definite pancreatic masses are identified. Status post cholecystectomy. Small amount of free fluid is identified just superior to the right kidney presumably related to the patient's pancreatitis which was identified on the previous study. Other findings as noted above Abdomen/Pelvis CT 04/21/18 00:00 IMPRESSION: Acute pancreatitis. Small amount of ascites. Otherwise no change. Assessment & Plan - Diagnosis (1) Acute pancreatitis Qualifiers: Acute pancreatitis complication: uninfected necrosis Qualified Code(s): K85.21 - Alcohol induced acute pancreatitis with uninfected necrosis Is this a current diagnosis for this admission?: Yes Plan: Impression: Clinically improved; laboratory profile show improved; persisting hyperbilirubinemia out of proportion to other liver function studies, and otherwise normal MRCP regarding the intra-and extrahepatic biliary tree. The exact etiology of the patient's hyperbilirubinemia is somewhat confusing. Certainly swelling of the pancreatic head could be responsible, but one would expect demonstration of extrahepatic dilatation on imaging. Recommendations: 1. I believe the patient should be kept n.p.o., on IV fluids and pancreatic rest. Consideration should be made for either Dobbhoff feedings with elemental formula fed into the GI tract distal to the pancreas, or total parenteral nutrition. Discussed the above with primary care team. This will be discussed with the patient. 2. I reviewed imaging studies. There is no indication for percutaneous drainage of a cyst, or drainage procedure. The patient does not appear to be septic and overall making clinical improvement.
--- NOTE | 2018-04-23 10:42 | EKG REPORT ---
SEVERITY:- ABNORMAL ECG - SINUS RHYTHM PROBABLE INFERIOR INFARCT, OLD : Confirmed by: Jeremie Enamorado 23-Apr-2018 10:42:14
--- NOTE | 2018-04-23 11:53 | PDOC PROGRESS REPORT ---
Subjective Progress Note for:: 04/23/18 Subjective:: Patient was kept n.p.o. Continues to receive IV fluids. He he asked to have the Henry catheter removed and it was removed last night. His pain is improved he denies nausea or vomiting. His numbers today are better. Reason For Visit: ACUTE PANCREATITIS Physical Exam Vital Signs: Temp Pulse Resp BP Pulse Ox 98.8 F 103 H 18 141/110 H 100 04/23/18 07:50 04/23/18 07:50 04/23/18 07:50 04/23/18 07:50 04/23/18 07:50 Intake & Output 04/22/18 04/23/18 04/24/18 06:59 06:59 06:59 Intake Total 3700 1750 100 Output Total 800 1160 Balance 2900 590 100 Weight 222 lb 14.197 oz 237 lb 10.533 oz General appearance: PRESENT: no acute distress, cooperative Head exam: PRESENT: atraumatic, normocephalic Eye exam: PRESENT: EOMI, PERRLA, scleral icterus Ear exam: ABSENT: bleeding, drainage Mouth exam: PRESENT: neck supple, tongue midline Neck exam: ABSENT: meningismus, tenderness, tracheostomy Respiratory exam: PRESENT: clear to auscultation puja. ABSENT: accessory muscle use Cardiovascular exam: PRESENT: RRR. ABSENT: diastolic murmur, systolic murmur GI/Abdominal exam: PRESENT: normal bowel sounds, soft, tenderness. ABSENT: ascites Rectal exam: PRESENT: deferred Extremities exam: ABSENT: pedal edema Neurological exam: PRESENT: alert, altered, awake, oriented to person, oriented to place, oriented to time, oriented to situation Results Laboratory Results: 04/23/18 04:46 04/23/18 04:46 04/23/18 04/23/18 04:46 04:46 WBC 8.9 RBC 4.06 L Hgb 13.1 L D Hct 37.1 L MCV 91 MCH 32.3 MCHC 35.3 RDW 14.5 H Plt Count 177 Seg Neutrophils % 80.6 H Lymphocytes % 13.9 Monocytes % 4.9 Eosinophils % 0.3 Basophils % 0.3 Absolute Neutrophils 7.1 Absolute Lymphocytes 1.2 Absolute Monocytes 0.4 Absolute Eosinophils 0.0 Absolute Basophils 0.0 Sodium 136.6 L Potassium 3.6 Chloride 98 Carbon Dioxide 27 Anion Gap 12 BUN 12 Creatinine 0.54 Est GFR ( Amer) > 60 Est GFR (Non-Af Amer) > 60 Glucose 92 Calcium 8.2 L Magnesium 2.0 Total Bilirubin 8.9 H AST 151 H ALT 165 H Alkaline Phosphatase 115 Total Protein 5.2 L Albumin 2.8 L Lipase 502.6 H Impressions: Chest X-Ray 04/20/18 08:15 IMPRESSION: 1. NO ACUTE RADIOGRAPHIC FINDING IN THE CHEST. Abdomen MRI 04/21/18 00:00 IMPRESSION: 1. Status post cholecystectomy. No intrahepatic or extrahepatic bile duct distention or duct stones. 2. Findings consistent with the clinical history of pancreatitis involving the head and neck. Proximal to this, there is mild pancreatic duct dilatation and cyst formation. Allowing for the relatively diffuse prominence of head and neck pancreatic tissue, no discrete mass is seen. Abdomen Ultrasound 04/21/18 00:00 IMPRESSION: No definite pancreatic masses are identified. Status post cholecystectomy. Small amount of free fluid is identified just superior to the right kidney presumably related to the patient's pancreatitis which was identified on the previous study. Other findings as noted above Abdomen/Pelvis CT 04/21/18 00:00 IMPRESSION: Acute pancreatitis. Small amount of ascites. Otherwise no change. Assessment & Plan - Diagnosis (1) Acute pancreatitis Qualifiers: Acute pancreatitis complication: uninfected necrosis Qualified Code(s): K85.21 - Alcohol induced acute pancreatitis with uninfected necrosis Is this a current diagnosis for this admission?: Yes Plan: Continue aggressive IV fluid hydration Continue IV Dilaudid and Toradol for pain management Continue IV Zofran as needed for nausea and vomiting Continue n.p.o. discussed with Dr. Goodrich, will keep n.p.o. until the pancreas recovers He may need TPN or Dobbhoff tube to bypass the second part of duodenum Monitor him very closely (2) Psoriasis Is this a current diagnosis for this admission?: Yes Plan: Should follow-up outpatient (3) Alcohol use Is this a current diagnosis for this admission?: Yes Plan: Was advised to stop drinking alcohol (4) Hyperbilirubinemia Is this a current diagnosis for this admission?: Yes Plan: MRCP did not show any intraductal stones but shows pancreatic duct dilatation that is mild and also cyst formation The head of pancreas is more swollen we will repeat CT scan of the abdomen Continue treatment for pancreatitis and monitor bilirubin levels (5) Transaminitis Is this a current diagnosis for this admission?: Yes Plan: Improved today, continue to monitor (6) Leukocytosis Is this a current diagnosis for this admission?: Yes Plan: Continue Zosyn empirically Follow blood cultures Likely related to pancreatitis (7) Hypomagnesemia Is this a current diagnosis for this admission?: Yes Plan: Improved after replacement (8) Tachycardia Is this a current diagnosis for this admission?: Yes Plan: Improved, continue to monitor (9) Hypokalemia Is this a current diagnosis for this admission?: Yes Plan: Improved after placement, continue to monitor
[2018-04-23] MEDS: RINGERS SOLUTION,LACTATED 1,000 ML IV PRN (15:01)
[2018-04-24] MEDS: LORAZEPAM INJ 2 MG/1 ML VIAL IV PRN ×3 (02:04→20:28)
[2018-04-24] MEDS: HYDROMORPHONE HCL INJ/PF 2 MG/ML AMPULE IV PRN ×6 (02:21→21:57)
[2018-04-24] MEDS: RINGERS SOLUTION,LACTATED 1,000 ML IV PRN ×3 (02:55→18:33)
[2018-04-24] MEDS: PIPERACILLIN SODIUM/TAZOBACTAM 3.375 GM in NORMAL SALINE 100 ML IV SCH ×4 (06:30→20:29)
[2018-04-24 06:46] LABS: HEMATOCRIT 35.8 % (37.9-51.0); HEMOGLOBIN 12.7 g/dL (13.5-17.0); MEAN CORPUSCULAR HEMOGLOBIN 32.9 pg (27.0-33.4); MEAN CORPUSCULAR HGB CONC 35.6 g/dL (32.0-36.0); MEAN CORPUSCULAR VOLUME 92 fl (80-97); PLATELET COUNT 238 10^3/uL (150-450); RED BLOOD COUNT 3.88 10^6/uL (4.35-5.55); RED CELL DISTRIBUTION WIDTH 14.8 % (11.5-14.0); WHITE BLOOD COUNT 7.7 10^3/uL (4.0-10.5)
[2018-04-24 07:12] LABS: ABSOLUTE LYMPHOCYTES# (MANUAL) 1.3 10^3/uL (0.5-4.7); ABSOLUTE MONOCYTES # (MANUAL) 0.8 10^3/uL (0.1-1.4); ABSOLUTE NEUTROPHILS# (MANUAL) 5.5 10^3/uL (1.7-8.2); BAND NEUTROPHILS % (MANUAL) 3 % (3-5); BASOPHILS % (MANUAL) 0 % (0-2); EOSINOPHILS % (MANUAL) 0 % (0-6); LYMPHOCYTES % (MANUAL) 15 % (13-45); MONOCYTES % (MANUAL) 11 % (3-13); SEGMENTED NEUTROPHILS % (MAN) 69 % (42-78); TOTAL CELLS COUNTED 100
[2018-04-24 07:13] LABS: ANISOCYTOSIS 1+; PLATELET COMMENT ADEQUATE; POIKILOCYTOSIS 1+; STOMATOCYTES 1+; TOXIC GRANULATION SLIGHT; TOXIC VACUOLATION PRESENT
[2018-04-24] MEDS: KETOROLAC TROMETHAMINE INJ/PF 30 MG/1 ML SDV IV PRN ×3 (07:18→20:28)
[2018-04-24 08:41] LABS: ALANINE AMINOTRANSFERASE 141 U/L (21-72); ALBUMIN 3.2 g/dL (3.5-5.0); ALKALINE PHOSPHATASE 133 U/L (38-126); ANION GAP 14 (5-19); ASPARTATE AMINO TRANSFERASE 106 U/L (17-59); BILIRUBIN,DIRECT 3.7 mg/dL (0.0-0.4); BILIRUBIN,TOTAL 4.9 mg/dL (0.2-1.3); BLOOD UREA NITROGEN 11 mg/dL (7-20); CALCIUM 8.7 mg/dL (8.4-10.2); CARBON DIOXIDE 26 mmol/L (22-30); CHLORIDE 101 mmol/L (98-107); GLUCOSE 89 mg/dL (75-110); LIPASE 316.2 U/L (23-300); POTASSIUM 3.8 mmol/L (3.6-5.0); SODIUM 140.9 mmol/L (137-145); TOTAL PROTEIN 5.9 g/dL (6.3-8.2)
[2018-04-24] MEDS: ENOXAPARIN SODIUM INJ 40 MG/0.4 ML DISP.SYRIN SUBCUT SCH (09:10)
[2018-04-24] MEDS: FAMOTIDINE INJ/PF 20 MG/2 ML SDV IV SCH ×2 (09:10→23:05)
--- NOTE | 2018-04-24 09:31 | PDOC PROGRESS REPORT ---
Subjective Progress Note for:: 04/24/18 Subjective:: Patient is improving. He is still n.p.o. Continues with IV fluids. He is afebrile and his white count is normal. His bilirubin and liver enzymes are improving so as his lipase levels. His pain is much better. Reason For Visit: ACUTE PANCREATITIS Physical Exam Vital Signs: Temp Pulse Resp BP Pulse Ox 98.3 F 93 14 150/113 H 98 04/24/18 08:12 04/24/18 08:12 04/24/18 08:12 04/24/18 08:12 04/24/18 08:12 Intake & Output 04/23/18 04/24/18 04/25/18 06:59 06:59 06:59 Intake Total 2750 1640 1000 Output Total 1160 900 Balance 0803 452 7746 Weight 237 lb 10.533 oz 241 lb 2.971 oz General appearance: PRESENT: no acute distress, cooperative Head exam: PRESENT: atraumatic, normocephalic Eye exam: PRESENT: EOMI, PERRLA Mouth exam: PRESENT: moist, neck supple, tongue midline Neck exam: ABSENT: meningismus, tenderness, tracheostomy Respiratory exam: PRESENT: clear to auscultation puja. ABSENT: accessory muscle use Cardiovascular exam: PRESENT: RRR. ABSENT: diastolic murmur, systolic murmur Pulses: PRESENT: normal radial pulses GI/Abdominal exam: PRESENT: normal bowel sounds, soft. ABSENT: ascites, tenderness Rectal exam: PRESENT: deferred Neurological exam: PRESENT: alert, altered, awake, oriented to person, oriented to place, oriented to time, oriented to situation Psychiatric exam: ABSENT: agitated, anxious, homicidal ideation, suicidal ideation Results Laboratory Results: 04/24/18 05:30 04/24/18 08:05 04/24/18 04/24/18 04/24/18 05:30 05:30 08:05 WBC 7.7 RBC 3.88 L Hgb 12.7 L Hct 35.8 L MCV 92 MCH 32.9 MCHC 35.6 RDW 14.8 H Plt Count 238 Seg Neutrophils % Not Reportable Lymphocytes % Not Reportable Monocytes % Not Reportable Eosinophils % Not Reportable Basophils % Not Reportable Absolute Neutrophils Not Reportable Absolute Lymphocytes Not Reportable Absolute Monocytes Not Reportable Absolute Eosinophils Not Reportable Absolute Basophils Not Reportable Sodium Cancelled 140.9 Potassium Cancelled 3.8 Chloride Cancelled 101 Carbon Dioxide Cancelled 26 Anion Gap Cancelled 14 BUN Cancelled 11 Creatinine Cancelled 0.48 L Est GFR ( Amer) Cancelled > 60 Est GFR (Non-Af Amer) Cancelled > 60 Glucose Cancelled 89 Calcium Cancelled 8.7 Magnesium Cancelled 2.1 Total Bilirubin Cancelled 4.9 H AST Cancelled 106 H ALT Cancelled 141 H Alkaline Phosphatase Cancelled 133 H Total Protein Cancelled 5.9 L Albumin Cancelled 3.2 L Lipase Cancelled 316.2 H Impressions: Chest X-Ray 04/20/18 08:15 IMPRESSION: 1. NO ACUTE RADIOGRAPHIC FINDING IN THE CHEST. Abdomen MRI 04/21/18 00:00 IMPRESSION: 1. Status post cholecystectomy. No intrahepatic or extrahepatic bile duct distention or duct stones. 2. Findings consistent with the clinical history of pancreatitis involving the head and neck. Proximal to this, there is mild pancreatic duct dilatation and cyst formation. Allowing for the relatively diffuse prominence of head and neck pancreatic tissue, no discrete mass is seen. Abdomen Ultrasound 04/21/18 00:00 IMPRESSION: No definite pancreatic masses are identified. Status post cholecystectomy. Small amount of free fluid is identified just superior to the right kidney presumably related to the patient's pancreatitis which was identified on the previous study. Other findings as noted above Abdomen/Pelvis CT 04/21/18 00:00 IMPRESSION: Acute pancreatitis. Small amount of ascites. Otherwise no change. Assessment & Plan - Diagnosis (1) Acute pancreatitis Qualifiers: Acute pancreatitis complication: uninfected necrosis Qualified Code(s): K85.21 - Alcohol induced acute pancreatitis with uninfected necrosis Is this a current diagnosis for this admission?: Yes Plan: Continue aggressive IV fluid hydration Continue IV Dilaudid and Toradol for pain management Continue IV Zofran as needed for nausea and vomiting Continue n.p.o. for today, monitor clinical status and labs If continues to improve may be able to start him on clear liquid tomorrow Monitor him very closely (2) Psoriasis Is this a current diagnosis for this admission?: Yes Plan: Should follow-up outpatient (3) Alcohol use Is this a current diagnosis for this admission?: Yes Plan: Was advised to stop drinking alcohol (4) Hyperbilirubinemia Is this a current diagnosis for this admission?: Yes Plan: Currently improving MRCP did not show any intraductal stones but shows pancreatic duct dilatation that is mild and also cyst formation The head of pancreas is more swollen we will repeat CT scan of the abdomen Continue treatment for pancreatitis and monitor bilirubin levels (5) Transaminitis Is this a current diagnosis for this admission?: Yes Plan: Improving, continue to monitor (6) Leukocytosis Is this a current diagnosis for this admission?: Yes Plan: Continue Zosyn empirically Follow blood cultures, so far negative Likely related to pancreatitis (7) Hypomagnesemia Is this a current diagnosis for this admission?: Yes Plan: Improved after replacement (8) Tachycardia Is this a current diagnosis for this admission?: Yes Plan: Resolved patient removed his telemetry leads (9) Hypokalemia Is this a current diagnosis for this admission?: Yes Plan: Improved after placement, continue to monitor
[2018-04-24] MEDS ORDERED: HYDRALAZINE HCL 10 MG TABLET PO PRN (12:26)
[2018-04-24] MEDS ORDERED: HYDRALAZINE HCL INJ/PF 20 MG/1 ML SDV ONE (12:30)
[2018-04-24] MEDS ORDERED: HYDRALAZINE HCL INJ/PF 20 MG/1 ML SDV IV ONE (13:30)
[2018-04-24] MEDS: LABETALOL HCL INJ 20 MG/4 ML DISP.SYRIN IV PRN ×2 (13:51→20:30)
--- NOTE | 2018-04-24 15:42 | PDOC PROGRESS REPORT ---
Subjective Progress Note for:: 04/24/18 Subjective:: This a 32-year-old male with alcoholic pancreatitis. He is feeling better today. He denies fevers, chills, nausea, vomiting, or abdominal pain. He also denies chest pain, shortness of breath, dizziness, fatigue, malaise, or blurry vision. Reason For Visit: ACUTE PANCREATITIS Physical Exam Vital Signs: Temp Pulse Resp BP Pulse Ox 98.0 F 99 18 183/116 H 100 04/24/18 11:51 04/24/18 13:32 04/24/18 11:51 04/24/18 13:32 04/24/18 11:51 Intake & Output 04/23/18 04/24/18 04/25/18 06:59 06:59 06:59 Intake Total 2750 1640 1100 Output Total 1160 900 Balance 7070 333 4012 Weight 107.8 kg 109.4 kg General appearance: PRESENT: no acute distress Head exam: PRESENT: atraumatic, normocephalic Eye exam: PRESENT: EOMI, PERRLA Mouth exam: PRESENT: moist, neck supple Neck exam: ABSENT: meningismus, tenderness, thyromegaly, tracheal deviation Respiratory exam: PRESENT: clear to auscultation puja, unlabored. ABSENT: chest wall tenderness, rhonchi, tachypnea, wheezes Cardiovascular exam: PRESENT: RRR Pulses: PRESENT: normal radial pulses Vascular exam: PRESENT: normal capillary refill. ABSENT: pallor GI/Abdominal exam: PRESENT: soft, tenderness - Minimal. ABSENT: distended, guarding Rectal exam: PRESENT: deferred Extremities exam: ABSENT: clubbing Musculoskeletal exam: ABSENT: deformity Neurological exam: PRESENT: alert, awake, oriented to person, oriented to place , oriented to time, CN II-XII grossly intact. ABSENT: motor sensory deficit Psychiatric exam: ABSENT: agitated, anxious, depressed Focused psych exam: ABSENT: delusional Skin exam: ABSENT: cyanosis, erythema Results Laboratory Results: 04/24/18 05:30 04/24/18 08:05 04/24/18 04/24/18 04/24/18 05:30 05:30 08:05 WBC 7.7 RBC 3.88 L Hgb 12.7 L Hct 35.8 L MCV 92 MCH 32.9 MCHC 35.6 RDW 14.8 H Plt Count 238 Seg Neutrophils % Not Reportable Lymphocytes % Not Reportable Monocytes % Not Reportable Eosinophils % Not Reportable Basophils % Not Reportable Absolute Neutrophils Not Reportable Absolute Lymphocytes Not Reportable Absolute Monocytes Not Reportable Absolute Eosinophils Not Reportable Absolute Basophils Not Reportable Sodium Cancelled 140.9 Potassium Cancelled 3.8 Chloride Cancelled 101 Carbon Dioxide Cancelled 26 Anion Gap Cancelled 14 BUN Cancelled 11 Creatinine Cancelled 0.48 L Est GFR ( Amer) Cancelled > 60 Est GFR (Non-Af Amer) Cancelled > 60 Glucose Cancelled 89 Calcium Cancelled 8.7 Magnesium Cancelled 2.1 Total Bilirubin Cancelled 4.9 H AST Cancelled 106 H ALT Cancelled 141 H Alkaline Phosphatase Cancelled 133 H Total Protein Cancelled 5.9 L Albumin Cancelled 3.2 L Lipase Cancelled 316.2 H Impressions: Chest X-Ray 04/20/18 08:15 IMPRESSION: 1. NO ACUTE RADIOGRAPHIC FINDING IN THE CHEST. Abdomen MRI 04/21/18 00:00 IMPRESSION: 1. Status post cholecystectomy. No intrahepatic or extrahepatic bile duct distention or duct stones. 2. Findings consistent with the clinical history of pancreatitis involving the head and neck. Proximal to this, there is mild pancreatic duct dilatation and cyst formation. Allowing for the relatively diffuse prominence of head and neck pancreatic tissue, no discrete mass is seen. Abdomen Ultrasound 04/21/18 00:00 IMPRESSION: No definite pancreatic masses are identified. Status post cholecystectomy. Small amount of free fluid is identified just superior to the right kidney presumably related to the patient's pancreatitis which was identified on the previous study. Other findings as noted above Abdomen/Pelvis CT 04/21/18 00:00 IMPRESSION: Acute pancreatitis. Small amount of ascites. Otherwise no change. Assessment & Plan - Diagnosis (1) Acute pancreatitis Qualifiers: Pancreatitis type: alcohol induced Acute pancreatitis complication: unspecified Qualified Code(s): K85.20 - Alcohol induced acute pancreatitis without necrosis or infection Is this a current diagnosis for this admission?: Yes (2) Alcohol use Is this a current diagnosis for this admission?: Yes (3) Hyperbilirubinemia Is this a current diagnosis for this admission?: Yes - Plan Summary Plan Summary: This is a 32-year-old male with alcoholic pancreatitis. The patient was also found to have significant hyperbilirubinemia. The majority of his bilirubin is a direct component. This is consistent with alcoholic hepatitis. His MRCP shows no significant biliary ductal dilation. His symptoms and labs (lipase and bilirubin) are improving. I will begin the patient on clear liquids today. If the patient tolerates this well, he may be advanced. I will continue to follow the patient very closely with you.
[2018-04-24] MEDS: HYDRALAZINE HCL INJ/PF 20 MG/1 ML SDV IV PRN (17:58)
[2018-04-25] MEDS: HYDROMORPHONE HCL INJ/PF 2 MG/ML AMPULE IV PRN ×2 (04:04→08:42)
[2018-04-25] MEDS: PIPERACILLIN SODIUM/TAZOBACTAM 3.375 GM in NORMAL SALINE 100 ML IV SCH ×2 (04:04→08:04)
[2018-04-25 06:12] LABS: HEMATOCRIT 35.2 % (37.9-51.0); HEMOGLOBIN 12.6 g/dL (13.5-17.0); MEAN CORPUSCULAR HEMOGLOBIN 32.8 pg (27.0-33.4); MEAN CORPUSCULAR HGB CONC 35.7 g/dL (32.0-36.0); MEAN CORPUSCULAR VOLUME 92 fl (80-97); PLATELET COUNT 253 10^3/uL (150-450); RED BLOOD COUNT 3.84 10^6/uL (4.35-5.55); WHITE BLOOD COUNT 7.5 10^3/uL (4.0-10.5)
[2018-04-25 06:32] LABS: ALANINE AMINOTRANSFERASE 107 U/L (21-72); ALBUMIN 3.1 g/dL (3.5-5.0); ALKALINE PHOSPHATASE 129 U/L (38-126); ANION GAP 12 (5-19); ASPARTATE AMINO TRANSFERASE 70 U/L (17-59); BILIRUBIN,DIRECT 1.6 mg/dL (0.0-0.4); BLOOD UREA NITROGEN 11 mg/dL (7-20); CALCIUM 8.4 mg/dL (8.4-10.2); CARBON DIOXIDE 25 mmol/L (22-30); CHLORIDE 103 mmol/L (98-107); CHOLESTEROL 146.92 mg/dL (0-200); GLUCOSE 107 mg/dL (75-110); LIPASE 339.3 U/L (23-300); POTASSIUM 3.5 mmol/L (3.6-5.0); SODIUM 139.6 mmol/L (137-145); TOTAL PROTEIN 5.7 g/dL (6.3-8.2); TRIGLYCERIDES 269 mg/dL (<150)
[2018-04-25 06:43] LABS: DIRECT LDL 96 mg/dL (<100)
[2018-04-25 07:10] LABS: BILIRUBIN,TOTAL 2.3 mg/dL (0.2-1.3); VLDL CHOLESTEROL 53.8 mg/dL (10-31)
[2018-04-25] MEDS: KETOROLAC TROMETHAMINE INJ/PF 30 MG/1 ML SDV IV PRN (08:43)
[2018-04-25] MEDS ORDERED: OXYCODONE-ACETAMINOPHEN 5-325 MG TABLET PO PRN (10:33)
[2018-04-25] MEDS ORDERED: KETOROLAC TROMETHAMINE INJ/PF 30 MG/1 ML SDV IV PRN (10:34)
--- NOTE | 2018-04-25 10:37 | PDOC PROGRESS REPORT ---
Subjective Progress Note for:: 04/25/18 Subjective:: Patient is improving. He was started on clears and tolerated that very well. Continues with IV fluids. He is afebrile and his white count is been normal. His bilirubin and liver enzymes are improving so as his lipase levels. His pain is much better. Patient once his diet to be advanced I would like to be discharged later tonight. Reason For Visit: ACUTE PANCREATITIS Physical Exam Vital Signs: Temp Pulse Resp BP Pulse Ox 98.2 F 91 16 162/91 H 100 04/24/18 22:58 04/24/18 22:58 04/24/18 22:58 04/24/18 22:58 04/24/18 22:58 Intake & Output 04/24/18 04/25/18 04/26/18 06:59 06:59 06:59 Intake Total 1640 4884 Output Total 900 1500 Balance 740 3384 Weight 241 lb 2.971 oz 228 lb 2.855 oz General appearance: PRESENT: no acute distress, cooperative Head exam: PRESENT: atraumatic, normocephalic Eye exam: PRESENT: EOMI, PERRLA Ear exam: ABSENT: bleeding, drainage Mouth exam: PRESENT: neck supple, tongue midline Neck exam: ABSENT: meningismus, tracheostomy Respiratory exam: PRESENT: clear to auscultation puja. ABSENT: accessory muscle use Cardiovascular exam: PRESENT: RRR. ABSENT: diastolic murmur, systolic murmur Pulses: PRESENT: normal radial pulses GI/Abdominal exam: PRESENT: normal bowel sounds, soft, tenderness - Mild diffuse. ABSENT: ascites Rectal exam: PRESENT: deferred Extremities exam: ABSENT: pedal edema Neurological exam: PRESENT: alert, altered, awake, oriented to person, oriented to place, oriented to time, oriented to situation Psychiatric exam: PRESENT: appropriate affect. ABSENT: agitated, anxious, homicidal ideation, suicidal ideation Skin exam: PRESENT: dry, normal color Results Laboratory Results: 04/25/18 04:49 04/25/18 04:49 04/25/18 04/25/18 04:49 04:49 WBC 7.5 RBC 3.84 L Hgb 12.6 L Hct 35.2 L MCV 92 MCH 32.8 MCHC 35.7 RDW 15.0 H Plt Count 253 Sodium 139.6 Potassium 3.5 L Chloride 103 Carbon Dioxide 25 Anion Gap 12 BUN 11 Creatinine 0.43 L Est GFR ( Amer) > 60 Est GFR (Non-Af Amer) > 60 Glucose 107 Calcium 8.4 Magnesium 2.1 Total Bilirubin 2.3 H D AST 70 H ALT 107 H Alkaline Phosphatase 129 H Total Protein 5.7 L Albumin 3.1 L Triglycerides 269 H Cholesterol 146.92 LDL Cholesterol Direct 96 VLDL Cholesterol 53.8 H HDL Cholesterol 15 L Lipase 339.3 H Impressions: Chest X-Ray 04/20/18 08:15 IMPRESSION: 1. NO ACUTE RADIOGRAPHIC FINDING IN THE CHEST. Abdomen MRI 04/21/18 00:00 IMPRESSION: 1. Status post cholecystectomy. No intrahepatic or extrahepatic bile duct distention or duct stones. 2. Findings consistent with the clinical history of pancreatitis involving the head and neck. Proximal to this, there is mild pancreatic duct dilatation and cyst formation. Allowing for the relatively diffuse prominence of head and neck pancreatic tissue, no discrete mass is seen. Abdomen Ultrasound 04/21/18 00:00 IMPRESSION: No definite pancreatic masses are identified. Status post cholecystectomy. Small amount of free fluid is identified just superior to the right kidney presumably related to the patient's pancreatitis which was identified on the previous study. Other findings as noted above Abdomen/Pelvis CT 04/21/18 00:00 IMPRESSION: Acute pancreatitis. Small amount of ascites. Otherwise no change. Assessment & Plan - Diagnosis (1) Acute pancreatitis Qualifiers: Pancreatitis type: alcohol induced Acute pancreatitis complication: unspecified Qualified Code(s): K85.20 - Alcohol induced acute pancreatitis without necrosis or infection Is this a current diagnosis for this admission?: Yes Plan: Continue IV fluid hydration at 150 mL/h Switch IV Dilaudid p.o. Percocet and decrease IV Toradol to 15 mg every 8 hours as needed Continue IV Zofran as needed for nausea and vomiting Advance to full liquid diet and may advance to bland diet later today or dinner , monitor clinical status and labs Monitor him very closely Check labs tomorrow for possible discharge (2) Psoriasis Is this a current diagnosis for this admission?: Yes Plan: Should follow-up outpatient (3) Alcohol use Is this a current diagnosis for this admission?: Yes Plan: Was advised to stop drinking alcohol (4) Hyperbilirubinemia Is this a current diagnosis for this admission?: Yes Plan: Currently improving MRCP did not show any intraductal stones but shows pancreatic duct dilatation that is mild and also cyst formation Continue treatment for pancreatitis and monitor bilirubin levels (5) Transaminitis Is this a current diagnosis for this admission?: Yes Plan: Improving, continue to monitor (6) Leukocytosis Is this a current diagnosis for this admission?: Yes Plan: Resolved, stop Zosyn Follow blood cultures, so far negative Likely related to pancreatitis (7) Hypomagnesemia Is this a current diagnosis for this admission?: Yes Plan: Improved after replacement (8) Tachycardia Is this a current diagnosis for this admission?: Yes Plan: Resolved patient removed his telemetry leads 2 days ago (9) Hypokalemia Is this a current diagnosis for this admission?: Yes Plan: Improved after placement, continue to monitor
[2018-04-25] MEDS: FAMOTIDINE INJ/PF 20 MG/2 ML SDV IV SCH ×2 (10:52→21:06)
[2018-04-25] MEDS: ENOXAPARIN SODIUM INJ 40 MG/0.4 ML DISP.SYRIN SUBCUT SCH (10:52)
[2018-04-25] MEDS: POTASSI CL 20 MEQ/50 ML RIDER 20 MEQ/50 ML RTUPB IV SCH ×2 (11:00→12:48)
--- NOTE | 2018-04-25 12:13 | PDOC PROGRESS REPORT ---
Subjective Subjective:: This a 32-year-old male with alcoholic pancreatitis. He is feeling better today. He denies fevers, chills, nausea, vomiting, or abdominal pain. He also denies chest pain, shortness of breath, dizziness, fatigue, malaise, or blurry vision. The patient tolerated clear liquids well. Reason For Visit: ACUTE PANCREATITIS Physical Exam Vital Signs: Temp Pulse Resp BP Pulse Ox 98.2 F 77 16 162/91 H 100 04/24/18 22:58 04/25/18 11:49 04/24/18 22:58 04/24/18 22:58 04/24/18 22:58 Intake & Output 04/24/18 04/25/18 04/26/18 06:59 06:59 06:59 Intake Total 1640 4884 1100 Output Total 900 1500 Balance 740 3384 1100 Weight 109.4 kg 103.5 kg General appearance: PRESENT: no acute distress Head exam: PRESENT: atraumatic, normocephalic Eye exam: PRESENT: EOMI, PERRLA Mouth exam: PRESENT: moist, neck supple Neck exam: ABSENT: meningismus, tenderness, thyromegaly, tracheal deviation Respiratory exam: PRESENT: clear to auscultation puja, unlabored. ABSENT: chest wall tenderness, tachypnea, wheezes Cardiovascular exam: PRESENT: RRR Pulses: PRESENT: normal radial pulses Vascular exam: PRESENT: normal capillary refill GI/Abdominal exam: PRESENT: soft. ABSENT: tenderness Rectal exam: PRESENT: deferred Extremities exam: ABSENT: clubbing Musculoskeletal exam: ABSENT: deformity Neurological exam: PRESENT: alert, awake, oriented to person, oriented to place Psychiatric exam: ABSENT: agitated, anxious, depressed Skin exam: ABSENT: cyanosis, erythema, jaundice Results Laboratory Results: 04/25/18 04:49 04/25/18 04:49 04/25/18 04/25/18 04:49 04:49 WBC 7.5 RBC 3.84 L Hgb 12.6 L Hct 35.2 L MCV 92 MCH 32.8 MCHC 35.7 RDW 15.0 H Plt Count 253 Sodium 139.6 Potassium 3.5 L Chloride 103 Carbon Dioxide 25 Anion Gap 12 BUN 11 Creatinine 0.43 L Est GFR ( Amer) > 60 Est GFR (Non-Af Amer) > 60 Glucose 107 Calcium 8.4 Magnesium 2.1 Total Bilirubin 2.3 H D AST 70 H ALT 107 H Alkaline Phosphatase 129 H Total Protein 5.7 L Albumin 3.1 L Triglycerides 269 H Cholesterol 146.92 LDL Cholesterol Direct 96 VLDL Cholesterol 53.8 H HDL Cholesterol 15 L Lipase 339.3 H Impressions: Chest X-Ray 04/20/18 08:15 IMPRESSION: 1. NO ACUTE RADIOGRAPHIC FINDING IN THE CHEST. Abdomen MRI 04/21/18 00:00 IMPRESSION: 1. Status post cholecystectomy. No intrahepatic or extrahepatic bile duct distention or duct stones. 2. Findings consistent with the clinical history of pancreatitis involving the head and neck. Proximal to this, there is mild pancreatic duct dilatation and cyst formation. Allowing for the relatively diffuse prominence of head and neck pancreatic tissue, no discrete mass is seen. Abdomen Ultrasound 04/21/18 00:00 IMPRESSION: No definite pancreatic masses are identified. Status post cholecystectomy. Small amount of free fluid is identified just superior to the right kidney presumably related to the patient's pancreatitis which was identified on the previous study. Other findings as noted above Abdomen/Pelvis CT 04/21/18 00:00 IMPRESSION: Acute pancreatitis. Small amount of ascites. Otherwise no change. Assessment & Plan - Diagnosis (1) Acute pancreatitis Qualifiers: Pancreatitis type: alcohol induced Acute pancreatitis complication: unspecified Qualified Code(s): K85.20 - Alcohol induced acute pancreatitis without necrosis or infection Is this a current diagnosis for this admission?: Yes (2) Alcohol use Is this a current diagnosis for this admission?: Yes (3) Hyperbilirubinemia Is this a current diagnosis for this admission?: Yes - Plan Summary Plan Summary: This is a 32-year-old male with alcoholic pancreatitis. The patient was also found to have significant hyperbilirubinemia. The majority of his bilirubin is a direct component. This is consistent with alcoholic hepatitis. His MRCP shows no significant biliary ductal dilation. His symptoms and labs (lipase and bilirubin) are improving. The patient tolerated clear liquids very well. I will advance his diet today. I do not believe the patient will require any surgical intervention. I will see the patient again on an as-needed basis. Please renotify with any questions or concerns.
[2018-04-25] MEDS: LABETALOL HCL INJ 20 MG/4 ML DISP.SYRIN IV PRN (16:36)
[2018-04-25] MEDS: LORAZEPAM INJ 2 MG/1 ML VIAL IV PRN (16:41)
[2018-04-25] MEDS: RINGERS SOLUTION,LACTATED 1,000 ML IV PRN (16:45)
[2018-04-25] MEDS: HYDRALAZINE HCL INJ/PF 20 MG/1 ML SDV IV PRN (20:29)
[2018-04-26 06:13] LABS: HEMATOCRIT 36.7 % (37.9-51.0); HEMOGLOBIN 12.7 g/dL (13.5-17.0); MEAN CORPUSCULAR HEMOGLOBIN 32.2 pg (27.0-33.4); MEAN CORPUSCULAR HGB CONC 34.7 g/dL (32.0-36.0); MEAN CORPUSCULAR VOLUME 93 fl (80-97); PLATELET COUNT 267 10^3/uL (150-450); RED BLOOD COUNT 3.94 10^6/uL (4.35-5.55); RED CELL DISTRIBUTION WIDTH 15.2 % (11.5-14.0); WHITE BLOOD COUNT 8.4 10^3/uL (4.0-10.5)
[2018-04-26 06:36] LABS: ALANINE AMINOTRANSFERASE 85 U/L (21-72); ALBUMIN 3.2 g/dL (3.5-5.0); ALKALINE PHOSPHATASE 120 U/L (38-126); ANION GAP 15 (5-19); ASPARTATE AMINO TRANSFERASE 47 U/L (17-59); BILIRUBIN,DIRECT 1.2 mg/dL (0.0-0.4); BILIRUBIN,TOTAL 1.8 mg/dL (0.2-1.3); BLOOD UREA NITROGEN 7 mg/dL (7-20); CALCIUM 8.8 mg/dL (8.4-10.2); CARBON DIOXIDE 22 mmol/L (22-30); CHLORIDE 104 mmol/L (98-107); GLUCOSE 115 mg/dL (75-110); LIPASE 479.7 U/L (23-300); POTASSIUM 3.4 mmol/L (3.6-5.0); SODIUM 140.6 mmol/L (137-145); TOTAL PROTEIN 5.9 g/dL (6.3-8.2)
--- NOTE | 2018-04-26 09:50 | PDOC DISCHARGE SUMMARY ---
General - Admit/Disc Date/PCP Admission Date/Primary Care Provider: 04/20/18 11:48 Discharge Date: 04/26/18 - Discharge Diagnosis (1) Acute pancreatitis Is this a current diagnosis for this admission?: Yes (2) Psoriasis Is this a current diagnosis for this admission?: Yes (3) Alcohol use Is this a current diagnosis for this admission?: Yes (4) Hyperbilirubinemia Is this a current diagnosis for this admission?: Yes (5) Transaminitis Is this a current diagnosis for this admission?: Yes (6) Leukocytosis Is this a current diagnosis for this admission?: Yes (7) Hypomagnesemia Is this a current diagnosis for this admission?: Yes (8) Tachycardia Is this a current diagnosis for this admission?: Yes (9) Hypokalemia Is this a current diagnosis for this admission?: Yes - Additional Information Discharge Diet: As Tolerated Discharge Activity: Activity As Tolerated Prescriptions: Acetaminophen [Tylenol 8 Hour] 500 mg PO Q6HP PRN #20 tablet.er PRN Reason: For Headache Or Pain Home Medications: Acetaminophen [Tylenol 8 Hour] 500 mg PO Q6HP PRN #20 tablet.er 04/26/18 History of Present Illness History of Present Illness: ADDY MCCARTNEY is a 32 year old male with history of gallstone/alcoholic pancreatitis, psoriasis who presents to the emergency room due to acute onset of severe progressive sharp epigastric pain started last night after drinking with his friends and associated with nausea and diarrhea with no vomiting. Patient tells me that he does not drink very often. He is from out of town and visiting friends. His last drink before that was a week ago. He has highly elevated lipase and CT scan is positive for acute pancreatitis. Hospital Course Hospital Course: Patient received aggressive IV fluid hydration IV opioids for pain management and later Toradol IV was added for better pain control. He received IV Zofran for nausea and vomiting as needed. He was initially n.p.o. Diet later advanced and he tolerated bland diet without any problems. Now his pain is very well controlled. And he is asking for discharge. During hospitalization patient suffer from severe pancreatitis. His bilirubin was severely elevated above 9 and his liver enzymes was also severely elevated. His CT scan on admission was positive for acute pancreatitis due to his initial worsening status, repeat CT scan was done and showed progression of his pancreatitis with severe edema of the pancreas. MRCP was done but did not show any stones or obstructions in the common bile duct. Patient also developed severe leukocytosis and was started empirically on Zosyn. Cultures were negative. Zosyn was stopped and the patient observed off antibiotics. He continued to have normal white count. Currently the patient is afebrile, with normal white count, labs are significantly improved. He is tolerating diet and pain free and wants to go home. He was advised to not drink alcohol at all. Physical Exam Vital Signs: Temp Pulse Resp BP Pulse Ox 98.3 F 74 19 143/93 H 97 04/26/18 07:36 04/26/18 07:36 04/26/18 07:36 04/26/18 07:36 04/26/18 07:36 Intake & Output 04/25/18 04/26/18 04/27/18 06:59 06:59 06:59 Intake Total 4884 2904 Output Total 1500 Balance 3384 2904 Weight 228 lb 2.855 oz 228 lb 2.855 oz General appearance: PRESENT: no acute distress, cooperative Head exam: PRESENT: atraumatic, normocephalic Eye exam: PRESENT: EOMI, PERRLA Mouth exam: PRESENT: neck supple, tongue midline Neck exam: ABSENT: meningismus, tracheostomy Respiratory exam: PRESENT: clear to auscultation puja. ABSENT: accessory muscle use Cardiovascular exam: PRESENT: RRR. ABSENT: diastolic murmur, systolic murmur Pulses: PRESENT: normal radial pulses GI/Abdominal exam: PRESENT: normal bowel sounds, soft. ABSENT: ascites, tenderness Neurological exam: PRESENT: alert, altered, awake, oriented to person, oriented to place, oriented to time, oriented to situation Psychiatric exam: PRESENT: appropriate affect. ABSENT: agitated, anxious, homicidal ideation, suicidal ideation Results Laboratory Results: 04/26/18 04:59 04/26/18 04:59 04/26/18 04/26/18 04:59 04:59 WBC 8.4 RBC 3.94 L Hgb 12.7 L Hct 36.7 L MCV 93 MCH 32.2 MCHC 34.7 RDW 15.2 H Plt Count 267 Sodium 140.6 Potassium 3.4 L Chloride 104 Carbon Dioxide 22 Anion Gap 15 BUN 7 Creatinine 0.45 L Est GFR ( Amer) > 60 Est GFR (Non-Af Amer) > 60 Glucose 115 H Calcium 8.8 Magnesium 1.9 Total Bilirubin 1.8 H AST 47 ALT 85 H Alkaline Phosphatase 120 Total Protein 5.9 L Albumin 3.2 L Lipase 479.7 H Impressions: Chest X-Ray 04/20/18 08:15 IMPRESSION: 1. NO ACUTE RADIOGRAPHIC FINDING IN THE CHEST. Abdomen MRI 04/21/18 00:00 IMPRESSION: 1. Status post cholecystectomy. No intrahepatic or extrahepatic bile duct distention or duct stones. 2. Findings consistent with the clinical history of pancreatitis involving the head and neck. Proximal to this, there is mild pancreatic duct dilatation and cyst formation. Allowing for the relatively diffuse prominence of head and neck pancreatic tissue, no discrete mass is seen. Abdomen Ultrasound 04/21/18 00:00 IMPRESSION: No definite pancreatic masses are identified. Status post cholecystectomy. Small amount of free fluid is identified just superior to the right kidney presumably related to the patient's pancreatitis which was identified on the previous study. Other findings as noted above Abdomen/Pelvis CT 04/21/18 00:00 IMPRESSION: Acute pancreatitis. Small amount of ascites. Otherwise no change. Qualifiers - * PATIENT BEING DISCHARGED WITH ANY OF THE FOLLOWING DIAGNOSIS: No Plan Time Spent: Greater than 30 Minutes - 35 minutes
[2018-04-26] MEDS ORDERED: POTASSI CL 20 MEQ/50 ML RIDER 20 MEQ/50 ML RTUPB IV ONE (10:00)
[2018-04-26] MEDS ORDERED: POTASSIUM CHLORIDE 10 MEQ CAPSULE.ER PO ONE (10:00)
[2018-04-26] MEDS: ENOXAPARIN SODIUM INJ 40 MG/0.4 ML DISP.SYRIN SUBCUT SCH (10:02)
[2018-04-26] MEDS: FAMOTIDINE INJ/PF 20 MG/2 ML SDV IV SCH (10:03)
[2018-04-26 10:19] VITALS: BP 134/73
== END 2018-04-26 11:20 | disposition home or self-care (01) | DRG 440 ==
LOC: ER 07:49 → EH 11:48 → 4N 13:22
PROVIDERS: ADMIT Emergency Medicine; ATTEND Emergency Medicine
PROC: 3E0234Z Introduction of Serum, Toxoid and Vaccine into Muscle, Percutaneous Approach (ICD-10-PCS; principal; 2018-04-26)
DX: K85.21 Alcohol induced acute pancreatitis with uninfected necrosis (principal); E83.42 Hypomagnesemia; E87.6 Hypokalemia; K70.10 Alcoholic hepatitis without ascites; F10.10 Alcohol abuse, uncomplicated; I10 Essential (primary) hypertension; R00.0 Tachycardia, unspecified; E80.6 Other disorders of bilirubin metabolism; R74.0 Nonspecific elevation of levels of transaminase and lactic acid dehydrogenase [LDH]; L40.9 Psoriasis, unspecified; Y90.6 Blood alcohol level of 120-199 mg/100 ml; Z23 Encounter for immunization
CPT/HCPCS: 36415; 71045; 74177; 74181; 76705; 80048; 80053; 80061; 80076; 80307; 83690; 83735; 85025; 85027; 87040; 90471; 90686; 93005; 93010; 96361; 96374; 96375; 99285; G0008; J0360; J1170; J1650; J1885; J2060; J2270; J2405; J2543; J3475; J3480; J3490; J7030; J7120; S0028